=== PATIENT | male | born 1960 | race Caucasian/White ===

== ENCOUNTER → 2019-08-24 10:11 | Outpatient (CLI) | payer MEDICARE, BC, SELFPAY ==
--- NOTE | 2019-08-24 10:24 | XR_ITS ---
PROCEDURE: XR CHEST 2V CLINICAL HISTORY: CP, SOB Chest pain, shortness of breath, prior smoker COMPARISON: No exams were available for comparison FINDINGS: The cardiomediastinal silhouette and pulmonary vascularity are within normal limits. The lungs are clear without infiltrates, suspicious nodules, or pleural effusions. No acute bony abnormalities. IMPRESSION: No acute findings. Dictated by: Niko Vieyra MD 08/24/2019 10:34 Electronically signed by Niko Vieyra MD in [place] 08/24/2019 10:34
[2019-08-24 11:23] LABS: Basophils % 0.2 % (0.1-2.0); Eosinophils % 0.2 % (0.1-12.0); Hematocrit 42.2 % (42.0-52.0); Hemoglobin 13.8 g/dL (14.1-18.0); Lymphocytes # 1.2 K/mm3 (0.7-4.5); Lymphocytes % 11.9 % (10-50); Mean Corpuscular HGB Conc 32.8 g/dL (31.8-35.4); Mean Corpuscular Hemoglobin 30.4 pg (27.0-31.2); Mean Corpuscular Volume 92.6 fl (80-94); Mean Platelet Volume 6.9 fl (7.4-10.4); Monocytes # 0.7 K/mm3 (0.1-1.0); Monocytes % 6.4 % (1.7-9.3); Neutrophils # 8.5 K/mm3 (1.8-7.8); Neutrophils % 81.3 % (37.0-80.0); Platelet Count 277 K/mm3 (142-424); Red Blood Count 4.55 M/mm3 (4.60-6.20); Red Cell Distribution Width 12.6 % (11.5-17.5); White Blood Count 10.4 K/mm3 (4.8-10.8)
[2019-08-24 13:08] LABS: Alanine Aminotransferase 23 U/L (12-78); Albumin Level 4.1 gm/dL (3.4-5.0); Albumin/Globulin Ratio 1.3 (1.1-1.8); Alkaline Phosphatase 57 U/L (46-116); Anion Gap 14.2 mEq/L (5-15); Aspartate Amino Transferase 20 U/L (15-37); Bilirubin,Total 0.5 mg/dL (0.2-1.0); Blood Urea Nitrogen 20 mg/dL (7-18); Calcium 9.6 mg/dL (8.5-10.1); Carbon Dioxide 25 mmol/L (21.0-32.0); Chloride 106 mmol/L (98-107); Estimated Glomerular Filt Rate 138 ml/min (>60); GFR (African American) 167 ML/MIN (>60); Globulin 3.2 gm/dl (1.3-3.2); Glucose 84 mg/dL (74-106); Potassium 4.2 mmoL/L (3.5-5.1); Sodium 141 mmol/L (136-145); Total Protein,Serum 7.3 gm/dL (6.4-8.2); Troponin I < 0.02 ng/ml (0.00-0.06)
[2019-08-25 17:16] LABS: Myoglobin 30 ng/mL (28-72)
== END ==
PROVIDERS: PCP Nurse Practitioner Family; Visit Provider Nurse Practitioner Family
DX: R07.9 Chest pain, unspecified (principal); R06.02 Shortness of breath
CPT/HCPCS: 36415; 71046; 80053; 83874; 84484; 85025

== ENCOUNTER → 2019-09-19 14:47 | Outpatient (CLI) | payer MEDICARE, BC, SELFPAY | PROVIDERS: PCP Nurse Practitioner Family; Visit Provider Nurse Practitioner Family | DX: R00.2 Palpitations (principal) | CPT/HCPCS: 93225; 93226 ==

== ENCOUNTER 2021-12-27 14:01 | Emergency (ER) | payer MEDICARE, BC, SELFPAY ==
[2021-12-27 14:02] VITALS: BP 122/76; PULSE 95; RESP 18; TEMP 36.9; O2SAT 97; BMI 22.9
[2021-12-27 14:24] VITALS: BP 122/76; PULSE 90; RESP 16; TEMP 36.9; O2SAT 97
--- NOTE | 2021-12-27 14:28 | HMH.EDUTC ---
[facility] [place] Clinical Impression: Bee sting reaction Qualifiers: Encounter type: initial encounter Injury intent: undetermined intent Qualified Code(s): T63.444A - Toxic effect of venom of bees, undetermined, initial encounter Disposition: Home, Self-Care Condition on Discharge: Good Instructions: Insect Bites and Stings, DI for Insect Bites and Stings, Diphenhydramine Additional Instructions: Over the counter Benadryl may help with itching and reaction to bee stings Ice to the area may help with swelling Follow up with Family Doctor if no improvement or any worsening of symptoms Return if needed Straight to ER if any life threatening symptoms Start oral steriods tomorrow Prescriptions: predniSONE [Deltasone 10mg tablet] 10 mg PO BID #10 tab Transmission Status: Received by [id number] Referrals: Alma Delia Singh APRN [Primary Care Provider] - As needed Time of Disposition: 14:46 Medical Decision Making - Tray Inquiry Pt receiving controlled substance: No Tray was queried for this patient: No Vital Signs: 12/27/21 14:02 12/27/21 14:24 12/27/21 14:55 Temperature 98.4 F 98.4 F 98.3 F Temperature Source Oral Oral Oral Pulse Rate 87 Pulse Rate [Left Radial] 95 H 90 Respiratory Rate 18 16 16 Blood Pressure 122/76 Blood Pressure [Left Arm] 122/76 122/76 Blood Pressure Mean [Left Arm] 91 91 Blood Pressure Source Automatic Cuff Blood Pressure Source [Left Arm] Automatic Cuff Automatic Cuff Blood Pressure Position Sitting Blood Pressure Position [Left Arm] Sitting Sitting 02 Sat by Pulse Oximetry 97 97 Oxygen Delivery Method Room Air Room Air Room Air Orders (Tests/Meds): ED MEDICATIONS Discontinued Medications Generic Name Dose Route Start Last Admin Trade Name Freq PRN Reason Stop Dose Admin Methylprednisolone Sodium Succinate 125 mg 12/27/21 14:36 12/27/21 14:46 Methylprednisolone Sod Succ 125mg Vial IM 12/27/21 14:37 125 mg ONCE ONE Administration [facility] [place] - General Stated complaint: AO [id number] stung by bee,swollen hand Time Seen by Provider: 12/27/21 14:28 Mode of Arrival: Ambulatory Source of Information: Patient Limitations: No Limitations Description of Symptoms (Recalled from Triage Doc. by RN): States that he was stung by a wasp on his right hand yesterday. C/O redness and swelling today HEENT Symptoms (Recalled from RN notes): No Resp Symptoms (Recalled from RN notes): No Skin Symptoms (Recalled from RN notes): No MS Symptoms (Recalled from RN notes): No Functional Status (Recalled from RN notes): na - History of Present Illness Provider Complaint: Patient states that he was moving some mulch yesterday when he was stung on the inside of the right ring finger and he had some swelling and redness initially on the ring finger that swelling and redness has continued to spread into his hand and wrist area and he was worried that he is having a reaction so he came in to get it checked out - Related Data Previous Rx's Medication Instructions Recorded predniSONE [Deltasone 10mg tablet] 10 mg PO BID #10 tab 12/27/21 Allergies Allergy/AdvReac Type Severity Reaction Status Date / Time Sulfa (Sulfonamide Allergy Rash Verified 12/27/21 14:33 Antibiotics) - Worker's Comp Is this a Worker's Comp case?: No [facility] History - Hepatitis A Screen Drug use history?: No High risk sexual behaviors?: No History of sexually transmitted infection?: No Currently employed?: No Childcare worker?: No Do you have indoor plumbing?: Yes Do you have electricity?: Yes Attestation statement:: This patient has been screened for Hepatitis A risk factors. I have reviewed the patient's past medical history: Yes ROS Obtained: Yes All systems reviewed & no additional complaints, Yes Systems reviewed as appropriate & no additional complaints - Eyes Eyes: Reports system reviewed and no additional complaints, except as docu - ENT Ears, Nose, Mo
[2021-12-27 14:55] VITALS: BP 122/76; PULSE 87; RESP 16; TEMP 36.8; O2SAT 98
== END 2021-12-27 15:05 | disposition home or self-care (01) ==
PROVIDERS: Emergency Provider Nurse Practitioner; PCP Nurse Practitioner Family
DX: T63.461A Toxic effect of venom of wasps, accidental (unintentional), initial encounter (principal); Z79.52 Long term (current) use of systemic steroids; Z79.899 Other long term (current) drug therapy; Z88.2 Allergy status to sulfonamides
CPT/HCPCS: G0463; 96372; 99213

== ENCOUNTER 2022-01-03 13:23 | Emergency (ER) | payer MEDICARE, BC, SELFPAY ==
[2022-01-03 14:00] VITALS: BP 128/63; PULSE 74; RESP 17; TEMP 37.3; O2SAT 96; BMI 22.8
[2022-01-03 14:30] LABS: UTC Influenza A Antigen Negative (Negative)
[2022-01-03 14:31] LABS: UTC Influenza B Antigen Negative (Negative)
--- NOTE | 2022-01-03 14:31 | HMH.EDUTC ---
[facility] – [place] Disposition Clinical Impression: URI (upper respiratory infection) Qualifiers: URI type: unspecified URI Qualified Code(s): J06.9 - Acute upper respiratory infection, unspecified Disposition: Home, Self-Care Condition on Discharge: Good Instructions: DI for Sinusitis, Sore Throat, DI for Cough -- Adult Additional Instructions: *Monitor Temp, Over the counter Motrin or Tylenol as directed/as needed Tylenol every 4 hours and Motrin every 6 hours (as long as your family doctor has told you that you can take it) for fever or pain. and straight to ER if unable to lower temp less than 101.0 after medication given *Warm salt water gargles may help to soothe the throat *Throat Lozenges *Warm fluids like tea with honey may help to soothe the throat *Sleep elevated *Humidifier/Vaporizer *Flonase 2 sprays in each nostril daily but be aware that it may take 2-3 days before you notice improvement Follow up IMMEDIATELY for new or worsening symptoms or no Noticeable improvement over the next 48-72 hours. 911 for difficulty breathing or swallowing You were tested for today for COVID19 your test result should be back in the next 24-48 hours, you may check your results on the [facility] My Health portal if you have trouble logging on you may call for assistance Make sure to take your Vitamins Vit. C Vit D and Zinc if you can take them Prescriptions: Benzonatate [Benzonatate 100mg cap] 100 mg PO Q8HP PRN #30 cap PRN Reason: Cough Transmission Status: Pending to [facility] Fluticasone Propionate [Flonase 50mcg nasal spray 16gm] 1 spr NS DAILY #1 each Transmission Status: Pending to [facility] Azithromycin [Z-Alexandre 250mg Tab] 250 mg PO DIRECTED #6 tab Transmission Status: Pending to [facility] Referrals: Alma Delia Singh APRN [Primary Care Provider] - As needed Time of Disposition: 14:47 Medical Decision Making - Tray Inquiry Pt receiving controlled substance: No Tray was queried for this patient: No Vital Signs: 01/03/22 14:00 Temperature 99.2 F Temperature Source Oral Pulse Rate [Right Brachial] 74 Respiratory Rate 17 Blood Pressure [Right Arm] 128/63 Blood Pressure Mean [Right Arm] 84 Blood Pressure Source [Right Arm] Automatic Cuff Blood Pressure Position [Right Arm] Sitting 02 Sat by Pulse Oximetry 96 Oxygen Delivery Method Room Air - Lab Data Lab results reviewed: Yes: I reviewed the patient's lab results. Lab Results 01/03/22 14:30: Influenza Type A Ag Negative, Influenza Type B Ag Negative Orders (Tests/Meds): ORDERS Category Date Time Status Covid-19 Nasal PCR ([facility]) Routine Lab 01/03/22 14:30 Ordered Medical Decision Narrative: Patient states that he has taken azithromycin in the past without complications or reactions [facility] [place] HPI - General Stated complaint: covid test, cough Time Seen by Provider: 01/03/22 14:32 Mode of Arrival: Ambulatory Source of Information: Patient Limitations: No Limitations Description of Symptoms (Recalled from Triage Doc. by RN): PATIENT C/O HEADACHE, FEVER, SORE THROAT AND COUGH. REQUESTING COVID TEST HEENT Symptoms (Recalled from RN notes): Yes Resp Symptoms (Recalled from RN notes): Yes Skin Symptoms (Recalled from RN notes): No MS Symptoms (Recalled from RN notes): No Functional Status (Recalled from RN notes): WNL - History of Present Illness Provider Complaint: Patient states that about a week ago he started with sinus congestion and pressure and then he started having sore throat and cough States that he has continued to feel worse with pressure behind his eyes and cough since States that he was worried that he may have sinus infection or COVID so he came in to get checked and tested - Related Data Home Medications Medication Instructions Recorded Confirmed Albuterol Sulfate [Albuterol 8.5 gm IH Q6HP PRN 01/03/22 01/03/22 Sulfate Hfa] Atorvastatin Calcium [Lipitor 10mg 10 mg PO HS 01/03/22
[2022-01-03 14:45] VITALS: BP 128/63; PULSE 74; RESP 17; TEMP 37.3; O2SAT 96
== END 2022-01-03 14:50 | disposition home or self-care (01) ==
PROVIDERS: Emergency Provider Nurse Practitioner; PCP Nurse Practitioner Family
DX: J06.9 Acute upper respiratory infection, unspecified (principal); J02.9 Acute pharyngitis, unspecified
CPT/HCPCS: G0463; 87804; 99212; C9803; U0003; U0005

== ENCOUNTER → 2022-03-23 07:58 | Outpatient (CLI) | payer MEDICARE, BC, SELFPAY ==
--- NOTE | 2022-03-23 08:05 | CT_ITS ---
FINAL REPORT CLINICAL HISTORY: UPPER ABD PAIN,H/O PEPTIC ULCER,BLOATING,EPIGASTRIC PAIN FINDINGS: CT OF THE ABDOMEN AND PELVIS WITH CONTRAST Axial CT images of the abdomen and pelvis were obtained after the administration of oral and iv contrast. Coronal reformatted images were also obtained and reviewed.This study was performed with techniques to keep radiation doses as low as reasonably achievable (ALARA). Individualized dose reduction techniques using automated exposure control or adjustment of mA and/or kV according to the patient's size were employed. Abdomen: The lungs demonstrate mild bibasilar scarring. The heart is normal in size. The liver has an unremarkable appearance, without evidence of mass or biliary ductal dilatation. The patient is status post cholecystectomy. The spleen is unremarkable. No adrenal mass is present. The pancreas has an unremarkable appearance. The kidneys are normal, without evidence of mass or hydronephrosis. The aorta is normal in caliber. There is no free fluid or adenopathy. No mass or abnormal fluid collection is seen. There are postoperative changes in the stomach. Pelvis: The appendix normal The urinary bladder is unremarkable. No inflammatory process is seen. There is no evidence of mass or adenopathy. There is no evidence of bowel obstruction. There is a moderate to large amount of retained stool in the colon. IMPRESSION: No evidence of acute intra-abdominal process. Constipation. Reviewed, Interpreted and Dictated by Abe Carolina III, MD Transcribed by Keyona Humphries Authenticated and [facility]
== END ==
PROVIDERS: PCP Nurse Practitioner Family; Visit Provider Nurse Practitioner Family
DX: R10.11 Right upper quadrant pain (principal); R10.13 Epigastric pain; R14.0 Abdominal distension (gaseous); Z87.11 Personal history of peptic ulcer disease
CPT/HCPCS: 74177; Q9967

== ENCOUNTER 2022-06-29 16:20 | Emergency (ER) | payer MEDICARE, BC, SELFPAY ==
[2022-06-29 16:50] VITALS: BP 129/75; PULSE 72; RESP 23; TEMP 36.9; O2SAT 97; BMI 22.9
[2022-06-29 17:00] VITALS: BP 129/75; PULSE 72; RESP 23; TEMP 36.9; O2SAT 97; BMI 22.8
--- NOTE | 2022-06-29 17:04 | XR_ITS ---
PROCEDURE INFORMATION: Exam: XR Chest Exam date and time: 06/29/2022 5:03 PM Age: 61 years old Clinical indication: Cough TECHNIQUE: Imaging protocol: Radiologic exam of the chest. Views: 2 views. COMPARISON: CR XR CHEST 2V 08/24/2019 10:25 AM FINDINGS: Lungs: No lobar consolidation, pleural effusion or pulmonary edema. Pleural spaces: See Lungs finding. Heart/Mediastinum: Unremarkable. No cardiomegaly. Bones/joints: Unremarkable. IMPRESSION: No lobar consolidation, pleural effusion or pulmonary edema. Plain films are relatively insensitive for detecting any possible ground glass opacities.
--- NOTE | 2022-06-29 17:20 | EXP.UTC ---
Discharge Plan Prescriptions Prescriptions: No Action cyclobenzaprine 10 MG tablet 10 mg PO TIDP PRN (Reason: PAIN) atorvastatin 10 MG tablet 10 mg PO HS meloxicam 15 MG tablet 15 mg PO DAILY esomeprazole magnesium 40 MG capsule,delayed release(DR/EC) 40 mg PO DAILY gabapentin 100 MG capsule 100 mg PO BID albuterol sulfate 8.5 GM HFA aerosol inhaler 8.5 gm IH Q6HP PRN (Reason: Shortness Of Breath) azithromycin 250 MG tablet 250 mg PO DIRECTED Qty: 6 0RF Rx Instructions: Take two (2) tablets on day #1, then one (1) tablet day #2 thru #5 benzonatate 100 MG capsule 100 mg PO Q8HP PRN (Reason: Cough) Qty: 30 0RF fluticasone propionate 120 SPR/BOT bottle 1 spr NS DAILY Qty: 1 0RF Rx Instructions: one spray in each nostril daily Referrals Follow up/Referrals: Alma Delia Singh APRN [Primary Care Provider] - See instructions Activity Restrictions/Add. Instructions Additional Instructions/Restrictions: Make sure if you are working with chemicals you are working in a well ventilated area with appropriate face coverings Follow up with your Family Doctor if symptoms return or worsen Make sure to air out room before you enter or stay in for periods of time Return if needed Straight to ER if any life threatening symptoms Clinical Impressions Clinical Impression: Chemical exposure Instructions Patient Instructions: DI for Inhalation Injury Discharge ED Provider: Lori Pop [facility] [place] HPI General Stated complaint: [id number]/12@1100@home breathing of flumes Mode of Arrival: Ambulatory Source of Information: Patient Limitations: No Limitations Time Seen by Provider: 06/29/22 17:20 Description of Symptoms (Recalled from Triage Doc. by RN): PATIENT REPORTS THAT HE WAS CLEANING A JAC SAW BLADE THAT HAD LIQUID RUST REMOVER ON IT AND BELIEVES HE INHALED SOME OF THE RUST REMOVER TODAY AT APPROX 1200. HE REPORTS AN EPISODE OF COUGHING, HEADACHE, AND FEELING JITTERY FOR ABOUT 2 HOURS AFTER THIS INCIDENT. HE STATES HE FEELS FINE NOW, BUT HIS WANTED HIM TO GET CHECKED OUT HEENT Symptoms (Recalled from RN notes): No Resp Symptoms (Recalled from RN notes): Yes Skin Symptoms (Recalled from RN notes): No MS Symptoms (Recalled from RN notes): No Functional Status (Recalled from RN notes): WNL History of Present Illness Provider Complaint: Patient states that he put some WD40 rust remover on a saw blade he had at home on the wall and he started scrubbing it States that some of the dust got into the air and the fumes was in the room and made him start coughing, feeling a little jittery and headache for about an hour or so but has since now gone States that was worried due to him having asthma about him breathing in the dust particles and the fumes so she wanted him to come in and get a chest xray and make sure that it looks ok States that he feels fine now Related Data Home Medications Medication Instructions Recorded Confirmed albuterol sulfate 90 mcg/actuation 8.5 gm IH Q6HP PRN Shortness Of 01/03/22 01/03/22 aerosol inhaler Breath atorvastatin 10 mg tablet 10 mg PO HS Cholesterol 01/03/22 01/03/22 cyclobenzaprine 10 mg tablet 10 mg PO TIDP PRN PAIN 01/03/22 01/03/22 esomeprazole magnesium 40 mg 40 mg PO DAILY GERD 01/03/22 01/03/22 capsule,delayed release gabapentin 100 mg capsule 100 mg PO BID Pain 01/03/22 01/03/22 meloxicam 15 mg tablet 15 mg PO DAILY Pain 01/03/22 01/03/22 Previous Rx's Medication Instructions Recorded azithromycin 250 mg tablet 250 mg PO DIRECTED #6 tabs 01/03/22 benzonatate 100 mg capsule 100 mg PO Q8HP PRN Cough #30 caps 01/03/22 fluticasone propionate 50 1 spr NS DAILY #1 ea 01/03/22 mcg/actuation nasal spray,suspension Allergies Allergy/AdvReac Type Severity Reaction Status Date / Time Sulfa (Sulfonamide Allergy Rash Verified 12/27/21 14:33 Antibiotics) Worker's Comp Is this a Worker's Comp case?: No PFS
[2022-06-29 17:35] VITALS: BP 129/75; PULSE 72; RESP 23; TEMP 36.9; O2SAT 97
== END 2022-06-29 17:38 | disposition home or self-care (01) ==
LOC: UTC 17:04
PROVIDERS: Emergency Provider Nurse Practitioner; PCP Nurse Practitioner Family
DX: T75.89XA Other specified effects of external causes, initial encounter (principal); R05.9 Cough, unspecified; R51.9 Headache, unspecified
CPT/HCPCS: 71046; 99212; G0463

== ENCOUNTER → 2022-09-21 12:03 | Outpatient (CLI) | payer MEDICARE, BC, SELFPAY ==
--- NOTE | 2022-09-21 12:11 | XR_ITS ---
FINAL REPORT CLINICAL HISTORY: MID STERNAL CP COMPARISON: 06/29/2022 FINDINGS: 2 views of the chest were obtained . The heart is normal in size. The mediastinum is within normal limits. The lungs are clear. There is no pneumothorax. Osseous structures are unremarkable. IMPRESSION: No acute cardiopulmonary process. Reviewed, Interpreted and Dictated by Abe Carolina III, MD Transcribed by Marychuy Malone Authenticated and [facility]
[2022-09-21 13:26] LABS: Basophils # 0.1 K/mm3 (0-0.2); Basophils % 0.5 % (0.1-2.0); Eosinophils # 0.1 K/mm3 (0.0-0.4); Hematocrit 44.7 % (42.0-52.0); Hemoglobin 14.5 g/dL (14.1-18.0); Lymphocytes # 1.7 K/mm3 (0.7-4.5); Lymphocytes % 18.6 % (10-50); Mean Corpuscular HGB Conc 32.5 g/dL (31.8-35.4); Mean Corpuscular Hemoglobin 29.5 pg (27.0-31.2); Mean Corpuscular Volume 90.6 fl (80-94); Mean Platelet Volume 7.5 fl (7.4-10.4); Monocytes # 0.4 K/mm3 (0.1-1.0); Monocytes % 4.7 % (1.7-9.3); Neutrophils # 6.9 K/mm3 (1.8-7.8); Neutrophils % 75.2 % (37.0-80.0); Platelet Count 355 K/mm3 (142-424); Red Blood Count 4.94 M/mm3 (4.60-6.20); Red Cell Distribution Width 13.2 % (11.5-17.5); White Blood Count 9.2 K/mm3 (4.8-10.8)
[2022-09-21 13:53] LABS: Troponin I < 0.01 ng/ml (0.00-0.034)
== END ==
PROVIDERS: PCP Nurse Practitioner Family; Visit Provider Nurse Practitioner Family
DX: R07.89 Other chest pain (principal); R06.02 Shortness of breath
CPT/HCPCS: 36415; 71046; 84484; 85025

== ENCOUNTER → 2022-12-10 12:58 | Outpatient (CLI) | payer MEDICARE, BC, SELFPAY ==
--- NOTE | 2022-12-10 13:07 | XR_ITS ---
FINAL REPORT CLINICAL HISTORY: thumb pain that radiates into wrist FINDINGS: Left hand Three views were obtained. There is no acute fracture or dislocation. There are mild and moderate degenerative changes. No soft tissue abnormality is identified. IMPRESSION: Degenerative changes without acute bony abnormality. Reviewed, Interpreted and Dictated by Abe Carolina III, MD Transcribed by Suri Bhandari Authenticated and [facility]
--- NOTE | 2022-12-10 13:07 | XR_ITS ---
FINAL REPORT CLINICAL HISTORY: thumb pain that radiates into wrist FINDINGS: Right hand Three views were obtained. There is no acute fracture or dislocation. There are mild and moderate degenerative changes. There is a small loose body at the 1st carpometacarpal. IMPRESSION: Degenerative changes and small loose body as above. Reviewed, Interpreted and Dictated by Abe Carolina III, MD Transcribed by Suri Bhandari Authenticated and [facility]
== END ==
PROVIDERS: PCP Nurse Practitioner Family; Visit Provider Orthopaedic Surgery
DX: M79.644 Pain in right finger(s); M79.645 Pain in left finger(s); R20.0 Anesthesia of skin; R20.2 Paresthesia of skin
CPT/HCPCS: 73130

== ENCOUNTER → 2023-08-04 14:49 | Outpatient (CLI) | payer MEDICARE, BC, SELFPAY ==
[2023-08-04 14:32] LABS: Basophils % 0.2 % (0.1-2.0); Eosinophils # 0.1 K/mm3 (0.0-0.4); Eosinophils % 0.8 % (0.1-12.0); Hematocrit 42.3 % (42.0-52.0); Hemoglobin 14.6 g/dL (14.1-18.0); Lymphocytes # 1.6 K/mm3 (0.7-4.5); Lymphocytes % 22.1 % (10-50); Mean Corpuscular HGB Conc 34.6 g/dL (31.8-35.4); Mean Corpuscular Hemoglobin 30.9 pg (27.0-31.2); Mean Corpuscular Volume 89.1 fl (80-94); Mean Platelet Volume 8.3 fl (7.4-10.4); Monocytes # 0.5 K/mm3 (0.1-1.0); Monocytes % 6.1 % (1.7-9.3); Neutrophils # 5.2 K/mm3 (1.8-7.8); Neutrophils % 70.8 % (37.0-80.0); Platelet Count 297 K/mm3 (142-424); Red Blood Count 4.75 M/mm3 (4.60-6.20); Red Cell Distribution Width 13.3 % (11.5-17.5); White Blood Count 7.3 K/mm3 (4.8-10.8)
[2023-08-04 14:57] LABS: Erythrocyte Sedimentation Rate 27 mm/hr (0-20)
[2023-08-04 15:28] LABS: C-Reactive Protein 0.5 mg/L (0-4)
== END ==
PROVIDERS: PCP Nurse Practitioner Family; Visit Provider Nurse Practitioner Family
DX: R51.9 Headache, unspecified (principal)
CPT/HCPCS: 85025; 85651; 86140

== ENCOUNTER → 2023-08-16 17:00 | Outpatient (CLI) | payer MEDICARE, BC, SELFPAY | PROVIDERS: PCP Nurse Practitioner Family; Visit Provider Nurse Practitioner Family | DX: R10.9 Unspecified abdominal pain (principal) | CPT/HCPCS: 87086 ==

== ENCOUNTER → 2023-09-06 14:20 | Outpatient (CLI) | payer MEDICARE, BC, SELFPAY ==
--- NOTE | 2023-09-06 14:21 | CT_ITS ---
FINAL REPORT TECHNIQUE: Thin section axial CT images with coronal and sagittal reformats were performed through the neck. This study was performed with techniques to keep radiation doses as low as reasonably achievable (ALARA). Individualized dose reduction techniques using automated exposure control or adjustment of mA and/or kV according to the patient's size were employed. CLINICAL HISTORY: looking for a possible blockage COMPARISON: None FINDINGS: No adenopathy or mass lesion is present . Salivary glands are normal. Larynx is unremarkable. Thyroid gland is unremarkable. There is moderate mucosal thickening in the left maxillary sinus and mild mucosal thickening in the right maxillary sinus. There is also wall thickening in the maxillary sinuses bilaterally consistent with chronic inflammation. There are also areas of soft tissue thickening in the sphenoid sinuses. Bilateral carotid artery calcifications are noted in the cervical soft tissues, more prominent on the right side than the left. There is moderate degenerative change in the cervical spine with fusion present at the C5-6 level. There are right lung nodules present measuring up to 9 mm in size. Would recommend a follow-up chest CT to evaluate. IMPRESSION: Several right lung nodules measuring up to 9 mm in size. Would recommend chest CT in 3 months to further characterize. Changes of sinusitis in the maxillary and sphenoid sinuses as described. Bilateral carotid artery calcifications more prominent on the right than on the left. Reviewed, Interpreted and Dictated by Abe Carolina III, MD Transcribed by Shayla Coleman Authenticated and [facility]
== END ==
PROVIDERS: PCP Nurse Practitioner Family; Visit Provider Nurse Practitioner
DX: H65.21 Chronic serous otitis media, right ear (principal); Z87.891 Personal history of nicotine dependence
CPT/HCPCS: 70490

== ENCOUNTER → 2023-09-23 11:21 | Outpatient (POV) | payer MEDICARE, BC, SELFPAY | PROVIDERS: Visit Provider Specialist/Technologist | DX: Z00.00 Encounter for general adult medical examination without abnormal findings (principal) ==

== ENCOUNTER → 2023-10-07 06:20 | Outpatient (CLI) | payer MEDICARE, BC, SELFPAY ==
--- NOTE | 2023-10-07 | CA_ITS ---
APPROVED REPORT Exam: Exercise Treadmill Technologist: Tamara Nicolas, Ht: 5 ft 10 in Wt: 177 lbs BSA: 1.98 m2 HR: 70 bpm BP: 138/71 mmHg Rhythm: NSR, PVC Medical History Medications: Gabapentin,,,,, Pantoprazole,,,,, Flonase,,,,, Albuterol,,,,, Levocetirizine,,,,, AZelastine,,,,, Trelegy Ellipta,,,,, Vitamin B-12,,,,, Feosol,,,,, Allergies: SULFA Cardiac Risk Factors: FHX of CAD Stress Test Details Test: Souleymane HR Resting HR: 79 bpm Max Heart Rate (APMHR): 157 bpm Max HR Achieved: 168 bpm Target HR (85% APMHR): 133 bpm % of APMHR: 107 Recovery HR: 100 bpm HR response to stress: Normal HR response to stress BP Resting BP: 129.0/76 mmHg Max BP: 195/80 mmHg Recovery BP: 153.0/69.0 mmHg BP response to stress: Normal blood pressure response to stress. ECG Resting ECG: NSR, PVC Stress EC.[address] depression Arrhythmia: PACs, PVCs, 1 ventricular couplet Recovery ECG: Return to baseline within 3 minutes of recovery Recovery Arrhythmia: PACs, PVCs Clinical Exercise duration: 09:30 min Highest Stage Achieved: Exercise capacity: 10.1 METs Overall Exercise Capacity for Age: Average Stress ECG Conclusion The patient was able to exercise for a total of 9 minutes, 30 seconds. He achieved a total of 10.1 METS. He has average exercise capacity compared to age and sex matched peers. He has normal HR and BP response to exercise. MAX HR: 167 % OF PM: 106% MAX BP: 195/80 METS: 10.1 TEST STOPPED DUE TO: SOA NO CP Occasional PVCs, [address] changes: 0.[address] depression Conclusion: Average exercise capacity. No significant ST changes at peak stress. Myoview images are reported separately. Test Summary REST . . . . . . . Sitting REST . . . . . . . Standing REST . . . . . . . Standing REST 04:34 0.0 0.0 79 . 129/ 76 . . Stage 1 01:00 10.0 1.7 93 . . . . Stage 1 02:00 10.0 1.7 103 . . . . Stage 1 03:00 10.0 1.7 100 . 162/ 78 . . Stage 2 01:00 12.0 2.5 117 . . . . Stage 2 02:00 12.0 2.5 121 . . . . Stage 2 03:00 12.0 2.5 128 . 184/ 72 . . Stage 3 01:00 14.0 3.4 144 . . . . Stage 3 02:00 14.0 3.4 152 . . . . Stage 3 . . . . . . . Cardiolite injected Stage 3 03:00 14.0 3.4 158 . . . . Stage 4 00:30 16.0 4.2 167 . . . Stop exercise at 09:30 RECOVERY 01:00 0.0 0.0 147 . . . . RECOVERY 02:00 0.0 0.0 122 . . . . RECOVERY 03:00 0.0 0.0 108 . 195/ 80 . . RECOVERY 04:00 0.0 0.0 103 . 177/ 72 . . RECOVERY 05:00 0.0 0.0 100 . 153/ 69 . . RECOVERY 05:19 0.0 0.0 99 . 153/ 69 . . Electronically signed by : Paula Quezada MD 10/10/2023 23:07:24
--- NOTE | 2023-10-07 06:21 | CA_ITS ---
FINAL REPORT TECHNIQUE: Real-time imaging was performed of the extracranial carotid arteries in transverse and longitudinal planes, with color duplex evaluation of blood flow velocity. Spectral analysis was performed. The cervical vertebral arteries were also examined. CLINICAL HISTORY: CAD, DIZZINESS,PLAQUE SEEN IN CARTOIDS ON CT SCAN COMPARISON: None FINDINGS: NASCET technique is utilized for stenosis evaluation. Right carotid system (centimeters/second): CCA: 83 ICA: 80 ECA: 129 Vertebral artery: Antegrade ICA/CCA ratio: 0.96 Mild plaque is identified at the bifurcation. Left carotid system (centimeters/second): CCA: 94 ICA: 73 ECA: 108 Vertebral artery: Antegrade ICA/CCA ratio: 0.9 Mild plaque is identified at the bifurcation. IMPRESSION: Less than 50% right ICA stenosis. Less than 50% left ICA stenosis. Antegrade flow bilateral vertebral arteries. Reviewed, Interpreted and Dictated by Gilbert Perea MD Transcribed by Shayla Coleman Authenticated and [facility]
--- NOTE | 2023-10-07 06:21 | CA_ITS ---
APPROVED REPORT EXAM: Comprehensive 2D, Doppler, and color-flow Echocardiogram Histology Manager: Cheryl Cameron CRT Ht: 5 ft 10 in Wt: 177lbs BSA: 1.98 BP: 129/70 mmHg Indications: Abnormal ECG, Chest Pain, Shortness of Breath, Hyperlipidemia, Hypertension/HDD 2D Dimensions Left Atrium 3.34 cm M: 3.0 - 4.0 LVEF (Conn's) 55.40 % M: 52 - 72 LVOT 1.46 cm (M/F) 1.5-2.5 LV Volume 113.50 mL M: 62 - 150 LV Volume Index 57.3 mL/m2 M: 34 - 74 LA Volume 35.50 mL LA Volume Index 17.93 mL/m2 (M/F) 16-34 EF AP4 51.70 % EF AP2 59.7 % EF BP 55.4 % GL Strain -17.0 % M-Mode Dimensions RVDd 3.72 cm (0.9-2.6) LVDd 3.93 cm (3.5-5.7) Ao Diam 3.35 cm (2.0-3.7) LVDs 2.57 cm (3.5-5.7) IVSd 1.54 cm (0.6-1.1) PWd 0.79 cm (0.6-1.1) EF (Teich) 64.40% FS 34.60% EDV (Teich) 67.10 mL TAPSE 2.48 (<1.7) ESV (Teich) 23.90 mL LV Diastology E Decel Time 240 (160-240 msec) E/A Ratio 1.0 MED E' 6.8 (>= 7 cm/sec) MED A' 14.40 cm/s E'/MED E' Ratio 11.91 (<= 14) LAT E' 9.8 (>= 10 cm/sec) LAT A' 10.80 cm/s E/LAT E' Ratio 8.27 (<= 14) Aortic Valve LVOT Max 155.0 (70-110 cm/s) VERENICE Index 0.55 cm2/m2 LVOT VTI 35.05 cm AoV Peak Maroln. 228.0 (50-130 cm/s) AO Peak GR. 18.80 mmHg AO Mean GR. 12.50 (<5 mmHg) AO VTI 53.7 (18-25 cm) VERENICE (VTI) 1.09 (2.5-4.5 cm2) Mitral Valve MV E Max Marlon. 81.0 (40-130 cm/s) MV A Velocity 82.0 (40-130 cm/s) E/A Ratio 0.99 MV Decel. Time 240 (160-240 ms) Tricuspid Valve TR P. Velocity 593.00 cm/s RAP Estimate 10.00 mmHg RVSP 150.90 mmHg Left Ventricle The left ventricle is normal size. The left ventricular systolic function is normal. The left ventricular ejection fraction is within the normal range. There is normal left ventricular wall thickness. There is normal LV segmental wall motion. The left ventricular diastolic function is normal. LVEF is 55%. Right Ventricle The right ventricle is mildly dilated. The right ventricular systolic function is normal. Atria The left atrium size is normal. The right atrium size is normal. There is no Doppler evidence of interatrial shunt. Aortic Valve The aortic valve is mildly thickened. Aortic sclerosis, but no evidence of aortic stenosis. Peak velocity 2.3 m/s. Trace aortic regurgitation is present. Mitral Valve The mitral valve leaflets are mildly thickened. No evidence of mitral valve stenosis. Trace mitral regurgitation. Tricuspid Valve The tricuspid valve leaflets are thin and pliable. Trace tricuspid regurgitation. RVSP is 30-35 mmHg. Pulmonic Valve The pulmonary valve is normal in structure. Trace pulmonic regurgitation. Great Vessels The aortic root is normal in size. The ascending aorta is normal in size. IVC is normal in size and collapses >50% with inspiration. Pericardium There is no pericardial effusion. Other Information Study Quality: Fair Conclusion Normal biventricular systolic function. Mild RV dilation. Mild MR. RVSP is 30-35 mmHg. Electronically signed by : Paula Quezada MD 10/11/2023 21:17:20
--- NOTE | 2023-10-07 06:25 | NM_ITS ---
APPROVED REPORT Exam: Nuclear Stress Test Indication: FORMER SMOKER, FM HX, DIZZINESS, ABN EKG Patient Location: Outpatient Stress Tech: Tamara Chaparro PA Tech:MELONY Sherwood RT (R)(N)(M) Ht: 5 ft 10 in Wt: 170 lbs HR: 70 bpm BP: 138/71 mmHg BSA: 1.95 m2 TID: 1.09 BMI: 24.3 History: FORMER SMOKER, FM HX, DIZZINESS, ABN EK PATIENT COULD NOT LAY ON STOMACH FOR PRONE IMAGES DUE TO INJURRED SHOULDER Procedure: Patient exercised on Souleymane protocol 9:30 minutes and sec, resting heart rate 70 bpm, resting blood pressure 138/71 mmHg, with exercise maximum heart rate achived was 169 bpm which is 107 % of the maximum predicted heart rate and blood pressure was 195/80 mmHg. Test was stopped due to FATIGUE. Patient denied any complaint of chest pain. Patient has Average exercise capacity, achieved 10.1 METs of workload on treadmill, the blood pressure response to exercise was Normal. Cardiac Stress and Resting SPECT Images: Cardiac Stress and Resting SPECT images were obtained using technetium 99m Myoview 31.2 mCi stress and 10.58 mCi at rest. The patient could not lie on his abdomen. Therefore, prone stress imaging could not be performed. This may affect the diagnostic interpretation of the study findings. Resting and stress imaging and supine positions demonstrate a large sized, moderate, reversible perfusion defect in the basal to mid inferior and inferoseptal LV hall. Gated imaging demonstrates normal global LV systolic function. There is mild hypokinesis of the basal inferior LV wall. LVEF is calculated at 54%. Conclusion: Large sized, moderate, reversible perfusion defect in the basal to mid inferior and inferoseptal LV hall. Findings are suggestive of reversible ischemia. Gated imaging demonstrates normal global LV systolic function. There is mild hypokinesis of the basal inferior LV wall. LVEF is calculated at 54%. Electronically signed by : Paula Quezada MD 10/10/2023 23:11:33
== END ==
PROVIDERS: PCP Nurse Practitioner Family; Visit Provider Physician Assistant
DX: I77.9 Disorder of arteries and arterioles, unspecified (principal); R42 Dizziness and giddiness; R07.9 Chest pain, unspecified; R06.09 Other forms of dyspnea; R94.31 Abnormal electrocardiogram [ECG] [EKG]
CPT/HCPCS: 78452; 93017; 93018; 93306; 93880; A9502

== ENCOUNTER 2023-11-25 07:22 | Outpatient (CLI) | payer MEDICARE, BC, SELFPAY ==
--- NOTE | 2023-11-25 07:23 | CT_ITS ---
FINAL REPORT TECHNIQUE: Axial imaging of the chest was obtained without contrast. Reformatted images were also obtained and reviewed.This study was performed with techniques to keep radiation doses as low as reasonably achievable, (ALARA). Individualized dose reduction technique using automated exposure control or adjustment of mA and/or kV according to the patient's size were employed. CLINICAL HISTORY: Lung nodule FINDINGS: There is no axillary adenopathy. There are multiple small mediastinal lymph nodes. Heart size is normal. There is no pericardial or pleural effusion. There are multiple bilateral pulmonary nodules measuring up to 9 mm which is in the posterior right upper lobe on image 35. Other smaller nodules are seen bilateral. There is mild bronchiectasis at the lung bases posteriorly. Limited imaging of the upper abdomen demonstrates postoperative change of gastric bypass and cholecystectomy. IMPRESSION: 9 mm nodule in the posterior right upper lobe. Recommend 3-month follow-up CT and/or PET/CT. Reviewed, Interpreted and Dictated by Abe Carolina III, MD Transcribed by Marychuy Malone Authenticated and [facility]
== END 2023-11-25 23:59 ==
LOC: RAD 07:22
PROVIDERS: PCP Nurse Practitioner Family; Visit Provider Internal Medicine Pulmonary Disease
DX: R91.8 Other nonspecific abnormal finding of lung field (principal)
CPT/HCPCS: 71250

== ENCOUNTER 2024-02-12 10:53 | Emergency (ER) | payer MEDICARE, BC, SELFPAY ==
[2024-02-12 10:54] VITALS: BP 144/93; PULSE 75; RESP 18; TEMP 36.9; O2SAT 96; BMI 24.3
--- NOTE | 2024-02-12 11:21 | ED_ITS ---
Discharge Plan Disposition Patient Disposition: Home, Self-Care Prescriptions Prescriptions: No Action azelastine 137 mcg (0.1 %) aerosol,spray 2 spray intranasal BID Qty: 30 2RF Rx Instructions: administer into each nostril Men's 50 Plus Multivitamin 400-20-370 mcg tablet 1 tab PO DAILY ferrous sulfate [Feosol] 325 mg (65 mg iron) tablet 325 mg PO DAILY albuterol sulfate 90 mcg/actuation HFA aerosol inhaler 2 puff inhalation Q6HP PRN (Reason: Shortness Of Breath) Qty: 8.5 5RF cyanocobalamin-methylcobalamin 5,000 mcg/mL drops 4 drp sublingual DAILY atorvastatin 10 mg tablet 10 mg PO DAILY Qty: 90 3RF aspirin 81 mg tablet,chewable 81 mg PO QDAY Qty: 100 3RF Trelegy Ellipta 100-62.5-25 mcg blister with device 1 inh inhalation DAILY 30 Days Qty: 60 2RF gabapentin 100 mg capsule 100 mg PO .COMPLEX 30 Days Qty: 90 2RF Rx Instructions: 100 mg orally Take 2 in am, 1 at noon gabapentin 300 mg capsule 300 mg PO HS Qty: 30 2RF pantoprazole 40 mg tablet,delayed release (DR/EC) 40 mg PO BID 90 Days Qty: [address] 0.3-0.05 % drops,suspension 2 drp ophthalmic (eye) BID 7 Days Qty: 5 0RF Rx Instructions: please change the above route to EARs. Use 2 drops in right EAR BID for 7 days levocetirizine 5 mg tablet See Rx Instructions .ROUTE .COMPLEX Qty: 30 2RF Dose Instruction: TAKE ONE TABLET BY MOUTH EVERY DAY Rx Instructions: TAKE ONE TABLET BY MOUTH EVERY DAY fluticasone propionate 50 mcg/actuation spray,suspension 1 spray intranasal DAILY PRN Referrals Follow up/Referrals: Alma Delia Singh APRN [Primary Care Provider] - See instructions Activity Restrictions/Add. Instructions Additional Instructions/Restrictions: Please apply topical antibiotic ointment as described daily and have your sutures removed in 7 to 10 days. Return with any significant spreading redness pus high fevers or other concerns. Clinical Impressions Clinical Impression: Finger laceration Discharge ED Provider: Roxanne Dong General Adult HPI General Chief complaint: Extremity Injury, Upper Stated complaint: AO cut on left middle finger Time Seen by Provider: 02/12/24 10:56 Mode of Arrival: Ambulatory Source of Information: Patient Limitations: No Limitations Description of Symptoms (Recalled from ER Triage Doc. by RN): cut finger with a ground crewman aircraft support knife History of Present Illness HPI narrative: Patient is a 63-year-old male presents today with a laceration to the volar fat pad on the left long finger. States he was working with a ground crewman aircraft support knife about to try to cut into pumpkins the ground crewman aircraft support knife was very clean not contaminated with soil when he accidentally cut his finger. Patient denies any other anticoagulants or antiplatelet or injuries elsewhere. He is not up-to-date on tetanus. Related Data Home Medications Medication Instructions Recorded Confirmed ferrous sulfate 325 mg (65 mg 325 mg PO DAILY 06/25/23 11/19/23 iron) tablet (Feosol) fluticasone propionate 50 1 spray intranasal DAILY PRN 06/25/23 11/19/23 mcg/actuation nasal spray,suspension aqfjpgrgnrlr-msk-vjawx acid-vit 1 tab PO DAILY 06/25/23 11/19/23 K-lycop 400 mcg-20 mcg-370 mcg tablet (Men's 50 Plus Multivitamin) cyanocobalamin-methylcobalamin 4 drp sublingual DAILY 08/16/23 11/19/23 5,000 mcg/mL sublingual drops Previous Rx's Medication Instructions Recorded albuterol sulfate 90 mcg/actuation 2 puff inhalation Q6HP PRN 06/25/23 aerosol inhaler Shortness Of Breath #8.5 grams azelastine 137 mcg (0.1 %) nasal 2 spray intranasal BID #30 mL 09/13/23 spray aerosol aspirin 81 mg chewable tablet 81 mg PO QDAY #100 tabs 09/29/23 atorvastatin 10 mg tablet 10 mg PO DAILY #90 tabs 09/29/23 fluticasone fur. 100 mcg-umeclid 1 inh inhalation DAILY 30 days #60 10/20/23 62.5 mcg-vilant 25 mcg ea inhalat.powder (Trelegy Ellipta) gabapentin 100 mg capsule 100 mg PO .COMPLEX 30 days #90 caps 10/29/23 gabapentin 300 mg capsule 300 mg PO HS #30 caps 10/29/23 pantoprazole 40 mg tablet,delayed 40 mg PO BID reflux 90 days #180 11/09/23 release tabs tobramycin 0.3 %-dexamethasone 2 drp ophthalmic (eye) BID right 11/15/23 0.05 % eye drops,suspension EAR 7 days #5 mL (Tobradex ST) levocetirizine 5 mg tablet See Rx Instructions .Route 01/25/24 .COMPLEX #30 tabs Allergies Allergy/AdvReac Type Severity Reaction Status Date / Time Sulfa (Sulfonamide Allergy Rash Verified 11/19/23 11:16 Antibiotics) [facility] Disclaimer: The information contained in this section may have been updated after the patient was seen, as this information can be updated by other users. Medical History (Updated 02/12/24 @ 11:21 by Roxanne Dong MD) Multiple lung nodules on CT Asthma Abnormal stress test Pulmonary nodule, right SNHL (sensorineural hearing loss) ETD (eustachian tube dysfunction) Right chronic serous otitis media Surgical History Hx of gastric bypass History of colonoscopy History of carpal tunnel release of both wrists History of neck surgery History of laparoscopic cholecystectomy Family History Other Family history of cancer Family history of diabetes mellitus type II Family history of hyperlipidemia Social History Smoking Status: Never smoker alcohol intake: former substance use type: denies use current occupational status: retired Travel in the last 8 weeks: None household members: spouse housing: house lives independently: No marital status: education level: high school service: No jail: No caffeine: Yes special calli needs: No agree to transfusion: No do you feel safe at home: Yes victim of physical abuse: No victim of emotional abuse: No victim of sexual abuse: No would you like helpful sources: No ROS Obtained: Yes All systems reviewed & no additional complaints except as documented Physical Exam General General appearance: alert and in no apparent distress Respiratory Respiratory exam: Present normal lung sounds bilaterally Cardiovascular Cardiovascular exam: Present regular rate and normal rhythm Expanded Upper Extremity Exam Left: Hand L/R front image: 2 1. laceration Neurological Exam Neurological exam: Present alert and oriented X3 Medical Decision Making Tray Inquiry Pt receiving controlled substance: No Vital Signs: 02/12/24 10:54 Temperature 98.5 F Temperature Source Oral Pulse Rate [Right] 75 Respiratory Rate 18 Blood Pressure [Right Arm] 144/93 H Blood Pressure Mean [Right Arm] 110 02 Sat by Pulse Oximetry 96 Oxygen Delivery Method Room Air Orders (Tests/Meds): ED MEDICATIONS Generic Name Dose Route Start Last Admin Trade Name Kendall PRN Reason Stop Dose Admin Tetanus/Reduced Diphtheria/Acell Pertussis 0.5 ml 02/12/24 11:20 Tet/Diphth/Pert-Adult 0.5ml Syringe IM 02/12/24 11:21 .ONCE ONE Medical Decision Narrative: 63-year-old male presents today with laceration to the volar aspect of the left distal phalanx. He is neurovascular intact has normal extension and flexion and sensory and capillary refill. Wound was irrigated and cleaned extensively Tdap was updated laceration repaired return precautions and wound management discussed and patient was discharged in stable condition Procedures Laceration Laceration 1: Site: finger Side (If applicable): left Size (cm): 2.5 Description: stellate, flap and irregular Depth: simple, single layer Local Anesthetic: lidocaine 1% and with epi Amount of anesthesia used (mL): 5 (Digital block) Pre-repair: wound explored, irrigated extensively, extensive debridement and wound margins revised Skin layer closed with: nylon Size (cm): 4-0 Number of sutures: 6 Technique: simple, interrupted Critical Care Critical Care Time Critical Care Time: No
[2024-02-12] MEDS: TET/DIPHTH/PERT-ADULT 0.5ML SYRINGE 0.5 ML IM (11:24)
[2024-02-12 11:33] VITALS: BP 144/93; PULSE 75; RESP 15; TEMP 36.7
== END 2024-02-12 11:42 | disposition home or self-care (01) ==
PROVIDERS: Emergency Provider Student in an Organized Health Care Education/Training Program; PCP Nurse Practitioner Family
DX: S61.213A Laceration without foreign body of left middle finger without damage to nail, initial encounter (principal); W26.0XXA Contact with knife, initial encounter; Z23 Encounter for immunization
CPT/HCPCS: 12001; 90471; 90715; 99283

== ENCOUNTER 2024-03-02 09:51 | Outpatient (CLI) | payer MEDICARE, BC, SELFPAY | END 2024-03-02 23:59 | disposition home or self-care (01) | LOC: LAB.DROPOF 03-03 09:51 | PROVIDERS: PCP Nurse Practitioner; Visit Provider Nurse Practitioner | DX: B35.1 Tinea unguium (principal); M79.675 Pain in left toe(s) | CPT/HCPCS: 87102; 87206; 87220 ==

== ENCOUNTER 2024-07-03 15:13 | Outpatient (CLI) | payer MEDICARE, BC, SELFPAY ==
--- NOTE | 2024-07-03 15:32 | XR_ITS ---
FINAL REPORT CLINICAL HISTORY: Right foot pain and swelling COMPARISON: None FINDINGS: RIGHT FOOT 3 views of the right foot were obtained. There is no acute fracture or dislocation. Visualized joint spaces are normally aligned. Soft tissues are unremarkable. A small plantar calcaneal spur is present. IMPRESSION: No acute bony abnormality. Reviewed, Interpreted and Dictated by Gilbert Perea MD Transcribed by Shayla Coleman Authenticated and [facility]
[2024-07-03 15:53] LABS: Basophils % 0.4 % (0.1-2.0); Eosinophils # 0.2 K/mm3 (0.0-0.4); Eosinophils % 1.6 % (0.1-12.0); Hematocrit 45.5 % (42.0-52.0); Hemoglobin 14.4 g/dL (14.1-18.0); Lymphocytes % 20.1 % (10-50); Mean Corpuscular HGB Conc 31.7 g/dL (31.8-35.4); Mean Corpuscular Volume 94.6 fl (80-94); Mean Platelet Volume 7.4 fl (7.4-10.4); Monocytes # 0.7 K/mm3 (0.1-1.0); Monocytes % 6.8 % (1.7-9.3); Neutrophils # 6.9 K/mm3 (1.8-7.8); Neutrophils % 71.1 % (37.0-80.0); Platelet Count 242 K/mm3 (142-424); Red Blood Count 4.81 M/mm3 (4.60-6.20); Red Cell Distribution Width 13.7 % (11.5-17.5); White Blood Count 9.7 K/mm3 (4.8-10.8)
== END 2024-07-03 23:59 | disposition home or self-care (01) ==
LOC: LAB 15:17
PROVIDERS: PCP Nurse Practitioner Family; Visit Provider Nurse Practitioner Family
DX: M79.89 Other specified soft tissue disorders (principal)
CPT/HCPCS: 73630; 84550; 85025

== ENCOUNTER 2024-11-07 11:31 | Outpatient (CLI) | payer MEDICARE, BC, SELFPAY ==
--- NOTE | 2024-11-07 12:00 | ECG_ITS ---
APPROVED REPORT Exam: Resting ECG HR:83 bpm ECG Measurements Heart Rate 83 AXES UT 167 P 75 QRSd 93 QRS 4 QT 331 T 54 QTc 371 Conclusion SINUS RHYTHM NORMAL ECG UNCONFIRMED REPORT Electronically signed by : Abdirashid Worthington MD 11/07/2024 19:19:40
[2024-11-07 12:08] VITALS: BMI 24.3
[2024-11-07 12:15] LABS: Basophils % 0.2 % (0.1-2.0); Eosinophils % 0.2 % (0.1-12.0); Hematocrit 40.8 % (42.0-52.0); Hemoglobin 13.6 g/dL (14.1-18.0); Lymphocytes # 1.4 K/mm3 (0.7-4.5); Lymphocytes % 9.2 % (10-50); Mean Corpuscular HGB Conc 33.3 g/dL (31.8-35.4); Mean Corpuscular Volume 90.1 fl (80-94); Mean Platelet Volume 9.1 fl (7.4-10.4); Monocytes # 1.2 K/mm3 (0.1-1.0); Monocytes % 7.9 % (1.7-9.3); Neutrophils # 12.5 K/mm3 (1.8-7.8); Neutrophils % 81.8 % (37.0-80.0); Platelet Count 251 K/mm3 (142-424); Red Blood Count 4.53 M/mm3 (4.60-6.20); Red Cell Distribution Width 12.9 % (11.5-17.5); White Blood Count 15.2 K/mm3 (4.8-10.8)
[2024-11-07 12:19] LABS: MANUAL DIFFERENTIAL MANUAL DIFFERENTIAL (MANUAL DIFF)
[2024-11-07 12:25] LABS: Albumin Level 4.1 g/dl (3.5-5.0); Chloride 107 mmol/L (98-107); Sodium 135 mmol/L (136-145)
[2024-11-07 12:26] LABS: Potassium 3.9 mmoL/L (3.5-5.1)
[2024-11-07 12:28] LABS: Alanine Aminotransferase 48 U/L (12-78); Albumin/Globulin Ratio 1.6 (1.1-1.8); Anion Gap 8.9 mEq/L (5-15); Aspartate Amino Transferase 46 U/L (17-59); Blood Urea Nitrogen 28 mg/dl (9-20); Carbon Dioxide 23 mmol/L (22.0-30.0); Creatinine Clearance Estimated 81 mL/min (50-200); Estimated Glomerular Filt Rate 75 ml/min (>60); GFR (African American) 91 ML/MIN (>60); Globulin 2.5 g/dL (1.3-3.2); Total Protein,Serum 6.6 g/dl (6.3-8.2)
[2024-11-07 12:29] LABS: Alkaline Phosphatase 61 U/L (38-126); Bilirubin,Total 0.7 mg/dl (0.2-1.3); Calcium 9.3 mg/dl (8.4-10.2); Glucose 131 mg/dl (74-100)
[2024-11-07 12:39] LABS: Lymphocytes % 16 % (10-50); Monocytes % 3 % (2-9); Neutrophils % 81 % (42-76); Platelet Estimate Normal; RBC Morphology Normal; Total Cells Counted 100
== END 2024-11-07 23:59 | disposition home or self-care (01) ==
PROVIDERS: PCP Nurse Practitioner Family; Visit Provider Orthopaedic Surgery
DX: Z01.812 Encounter for preprocedural laboratory examination (principal)
CPT/HCPCS: 80053; 85007; 85025; 85027; 93005

== ENCOUNTER 2024-11-14 10:49 | Outpatient (CLI) | payer MEDICARE, BC, SELFPAY ==
--- NOTE | 2024-11-14 10:52 | XR_ITS ---
FINAL REPORT TECHNIQUE: Chest PA & Lateral CLINICAL HISTORY: cough, asthma COMPARISON: 09/21/2022 FINDINGS: 2 views of the chest were performed. The heart size is normal. The mediastinum is within normal limits. There is no acute cardiopulmonary process. There are no pleural effusions. There is no pneumothorax. The bony thorax appears intact. IMPRESSION: No acute cardiopulmonary process. Reviewed, Interpreted and Dictated by Gilbert Perea MD Transcribed by Keyona Humphries Authenticated and [facility]
== END 2024-11-14 23:59 | disposition home or self-care (01) ==
PROVIDERS: PCP Nurse Practitioner Family; Visit Provider Nurse Practitioner Family
DX: R05.1 Acute cough (principal)
CPT/HCPCS: 71046

== ENCOUNTER 2024-11-15 08:36 | Day surgery (SDC) | payer MEDICARE, BC, SELFPAY ==
[2024-11-15 08:48] VITALS: BMI 24.3
[2024-11-15 09:02] VITALS: BP 133/72; PULSE 68; RESP 18; TEMP 36.5; O2SAT 98
--- NOTE | 2024-11-15 09:17 | SUR.PREOP ---
Pt. case cancelled per anesthesia due to respiratory illness. He was seen by his PCP yesterday and started on a Z-pack. Left lung sounds had rhonchi throughout. Elevated wbc on his lab work on 11/07. Anesthesia feels it is better to postpone case due to being elective.
== END 2024-11-15 09:24 | disposition home or self-care (01) ==
LOC: OR 08:37
PROVIDERS: PCP Nurse Practitioner Family; Visit Provider Orthopaedic Surgery
PROC: (CPT 64721; principal; 2024-11-15 09:45)
DX: Z53.09 Procedure and treatment not carried out because of other contraindication (principal)

== ENCOUNTER 2024-11-21 09:47 | Outpatient (CLI) | payer MEDICARE, BC, SELFPAY ==
[2024-11-21 16:48] LABS: Basophils % 0.2 % (0.1-2.0); Eosinophils # 0.1 K/mm3 (0.0-0.4); Eosinophils % 1.4 % (0.1-12.0); Hemoglobin 13.9 g/dL (14.1-18.0); Lymphocytes # 1.6 K/mm3 (0.7-4.5); Lymphocytes % 17.7 % (10-50); Mean Corpuscular HGB Conc 33.1 g/dL (31.8-35.4); Mean Corpuscular Volume 90.7 fl (80-94); Mean Platelet Volume 9.3 fl (7.4-10.4); Monocytes # 0.7 K/mm3 (0.1-1.0); Monocytes % 7.4 % (1.7-9.3); Neutrophils # 6.4 K/mm3 (1.8-7.8); Neutrophils % 73.1 % (37.0-80.0); Platelet Count 216 K/mm3 (142-424); Red Blood Count 4.63 M/mm3 (4.60-6.20); White Blood Count 8.8 K/mm3 (4.8-10.8)
== END 2024-11-21 23:59 | disposition home or self-care (01) ==
LOC: LAB.DROPOF 11-22 09:48
PROVIDERS: PCP Nurse Practitioner Family; Visit Provider Nurse Practitioner Family
DX: T81.82XA Emphysema (subcutaneous) resulting from a procedure, initial encounter (principal)
CPT/HCPCS: 85025

== ENCOUNTER 2024-12-13 13:25 | Outpatient (CLI) | payer MEDICARE, BC, SELFPAY ==
--- NOTE | 2024-12-13 13:28 | XR_ITS ---
FINAL REPORT CLINICAL HISTORY: right ankle pain COMPARISON: None FINDINGS: RIGHT ANKLE: Three views demonstrate an oblique fracture of the distal fibula above the level of the ankle joint. However the fracture line does extend into the ankle mortise. There is no widening of the ankle mortise. The medial malleolus is intact. IMPRESSION: Oblique fracture of the distal fibula as described. Reviewed, Interpreted and Dictated by Alida Guevara MD Transcribed by Shayla Coleman Authenticated and [facility]
== END 2024-12-13 23:59 | disposition home or self-care (01) ==
LOC: RAD 13:28
PROVIDERS: PCP Nurse Practitioner Family; Visit Provider Physician Assistant
DX: M25.571 Pain in right ankle and joints of right foot (principal); M79.89 Other specified soft tissue disorders
CPT/HCPCS: 73610

== ENCOUNTER 2024-12-28 10:03 | Outpatient (CLI) | payer MEDICARE, BC, SELFPAY ==
--- NOTE | 2024-12-28 10:05 | XR_ITS ---
FINAL REPORT TECHNIQUE: Right ankle 3 views CLINICAL HISTORY: rt ankle fx f/u COMPARISON: 12/13/2024 FINDINGS: RIGHT ANKLE: 3 images of the right ankle were obtained. There are persistent visible fracture lines in the lateral malleolus. Mild callus formation is present. The joint spaces are intact. Moderate soft tissue swelling is present. There is a small plantar calcaneal spur. IMPRESSION: Mild callus formation is present at the fracture of the lateral malleolus. Reviewed, Interpreted and Dictated by Gilbert Perea MD Transcribed by Shayla Coleman Authenticated and [facility]
== END 2024-12-28 23:59 | disposition home or self-care (01) ==
LOC: RAD 10:04
PROVIDERS: PCP Nurse Practitioner Family; Visit Provider Physician Assistant
DX: M25.571 Pain in right ankle and joints of right foot (principal); S82.831A Other fracture of upper and lower end of right fibula, initial encounter for closed fracture
CPT/HCPCS: 73610

== ENCOUNTER 2025-01-12 14:02 | Outpatient (CLI) | payer MEDICARE, BC, SELFPAY ==
[2025-01-12 14:27] LABS: Uric Acid 3.8 mg/dl (3.5-8.5)
== END 2025-01-12 23:59 | disposition home or self-care (01) ==
LOC: LAB.DROPOF 14:03
PROVIDERS: PCP Nurse Practitioner Family; Visit Provider Nurse Practitioner Family
DX: M79.671 Pain in right foot (principal); L81.9 Disorder of pigmentation, unspecified
CPT/HCPCS: 84550

== ENCOUNTER 2025-01-29 10:24 | Outpatient (CLI) | payer MEDICARE, BC, SELFPAY ==
--- OUTSIDE RECORDS SUMMARY | 2025-01-29 10:27 | XMS_ITS | Data Portability ---
Author Organization [facility] & [place] [facility] ADMIN Address [address] [place] [id number] Care Team Providers Care Crisis Mental Health Therapist Name Role Phone OTILIO QUINTANILLAE Primary Care Provider Assessment Encounter Date Assessment Date Assessment LastModified by Organization Details LastModified Time 09/28/2022 09/28/2022 62-year-old male with intermittent epigastric pain and history of Addi-en-Y gastric bypass -Symptoms markedly improved with increasing acid suppression therapy. Continue Pantoprazole -H. pylori breath test recently negative per PCP. -UGI series with SBFT previously ordered to evaluate anastomotic integrity but not performed by patient. -EGD was scheduled for June 2022 but he cancelled due to improvement. -Continue Carafate as needed. f/u 4 months [email or web address] Not available 09/28/2022 14:39:05 Plan of Treatment Reminders Order Date Submit Date Provider Last Modified By Organization Details Last Modified Time Details Appointments None record ed. Lab None record ed. Referral None record ed. Procedures None record ed. Surgeries None record ed. Imaging None record ed. Medication Orders None record ed. Patient TargetsNo targets recorded. Patient InstructionsNo instructions recorded. Reason for Referral None Reported. Problems Name Problem SNOMED Code Status Onset Date Resolution Date Notes Provider Name and Address Organization Details Recorded Time Epigastric pain 28978754 Active 022 Jose Coleman PA-C [address], [place], [address] , [facility] & [place] 14:37:24 Problem Notes None recorded. Medical Equipment None Reported. Medications Name Sig Start Date Stop Date Status Note LastModified by Organization Details LastModified Time Carafate 100 mg/mL oral suspension TAKE 10 ML BY MOUTH 4 TIMES DAILY ON AN EMPTY STOMACH active Not Available Not Available No t Available atorvastatin 10 mg tablet TAKE 1 TABLET BY MOUTH ONCE DAILY FOR 90 DAYS active Not Available Not Available No t Available benzonatate 200 mg capsule TAKE 1 CAPSULE BY MOUTH THREE TIMES DAILY FOR 30 DAYS active Not Available Not Available No t Available meloxicam 15 mg tablet TAKE 1 TABLET BY MOUTH ONCE DAILY active Not Available Not Available No t Available prednisone 10 mg tablets in a dose pack TAKE DIRECTED active Not Available Not Available No t Available pantoprazole 40 mg tablet,delayed release TAKE 1 TABLET BY MOUTH TWICE DAILY active Not Available Not Available No t Available gabapentin 100 mg capsule TAKE 1 CAPSULE BY MOUTH IN THE MORNING AND 2 IN THE EVENING FOR 30 DAYS active Not Available Not Available No t Available levofloxacin 500 mg tablet TAKE 1 TABLET BY MOUTH ONCE DAILY FOR 10 DAYS active Not Available Not Available No t Available albuterol sulfate HFA 90 mcg/actuation aerosol inhaler INHALE 1 PUFF BY MOUTH EVERY 4 HOURS NEEDED active Not Available Not Available No t Available oxybutynin chloride 5 mg tablet TAKE 1 TABLET BY MOUTH AT BEDTIME active Not Available Not Available No t Available Vitals None Recorded Social History None recorded. Functional Status None recorded. Mental Status None recorded. Family History Nothing Reported. Medical History No medical history recorded. Immunizations Vaccine Type Date Status Note Provider Nam e and Address Organization Details Recorded Time COVID-19, mRNA, LNP-S, PF, 100 mcg/0.5mL dose or 50 mcg/0.25mL dose 10/15/2021 completed Adria christine, [place] - [facility] - [place] & [place] 09/28/2022 14:16:29 COVID-19 vaccine, vector-nr, rS-Ad26, PF, 0.5 mL 02/11/2021 completed Adria Dash null, [place] - [facility] - [place] & [place] 09/28/2022 14:16:29 Past Encounters Encounter ID Performer Location Encounter Start Date Encounter Closed Date Diagnosis/Indication Diagnosis SNOMED-CT Code Diagnosis ICD10 Code Diagnosis Note [id number] Jose Coleman PA-C [facility] [address] [place] [address] 09/28/2022 14:13:01 09/28/2022 14:30:05 History of bypass of stomach 770427713 Z98.84 Epigastric pain 28589397 R10.13 Health Concerns Section Related Observation LastModified by Organization Detai ls LastModified Time None Recorded Concern Status LastModified by Organization Details LastModified Time None Recorded Advance Directives Directive None Recorded Payers Encounter Date Sequence Insurance Name Policy Number Policy Rojas Covered Member ID Rojas Member ID Guarantor Name 09/28/2022 1 [place] Guille Arboleda [id number] Guille Arboleda 09/28/2022 2 [place]PPO[place] [id number] R Hafsa Arboleda [id number] Guille Arboleda Notes Date Note Type Note Provider Name and Address Organization Details Recorded Time 09/28/2022 text/html Mr. Nkechi hunt s a very pleasant 62 yo male with history of Addi en Y gastric bypass, anastomotic ulceration, and chronic dyspepsia who presents via telephonic encounter today for follow-up. He has continued Pantoprazole 40 mg twice daily with good results. He is seldom using Carafate for breakthrough symptoms. He has noted a few dietary triggers for epigastric pain that he is trying to avoid. He denies any new complaints today.I spent a total of 14 minutes during this real-time clinical encounter that was initiated by the patient which started at 1413 and ended at 1427. Consent was obtained to engage in telephonic service. Greater than 50% of the time spent was devoted to counseling and coordinating care including review of patient record, patient lab data and studies as well as discussing diagnostic evaluation and workup, planned therapeutic intervention and further disposition of care. This include any additional research needed to obtain further information in formulating the plan of care for this patient. This includes counseling the patient about their disease and diagnosis, specifically as above. Jose Coleman PA-C [address], [place], [phone], [facility] - [place] & [place] 09/28/2022 14:41:51
--- NOTE | 2025-01-29 10:29 | XR_ITS ---
FINAL REPORT CLINICAL HISTORY: Rt Ankle pain FX 7 WKS AGO NO SX COMPARISON: 12/28/2024 FINDINGS: RIGHT ANKLE 3 views of the right ankle were obtained. There is an oblique mildly displaced fracture of the distal fibula with evidence of healing. The ankle mortise is intact. There is a well-corticated ossific density measuring 5 mm inferior to the medial malleolus. A small plantar spur is noted. Soft tissues are unremarkable. IMPRESSION: Healing distal fibular fracture. Reviewed, Interpreted and Dictated by Gilbert Perea MD Transcribed by Keyona Humphries Authenticated and [facility]
--- NOTE | 2025-01-29 13:00 | XR_ITS ---
FINAL REPORT CLINICAL HISTORY: fx of distal end of right fibula FINDINGS: Using L1-4, the bone mineral density of the spine is 0.924 g/cm2, corresponding to T-score of -1.5. Using the left hip, the bone mineral density of the femoral neck is 0.727 g/cm2, corresponding to a T-score of -1.5. Using the right hip, the bone mineral density of the femoral neck is 0.752 g/cm2, corresponding to a T-score of -1.3. FRAX 10 year fracture risk is 6.2% for a hip fracture and 0.9% for a major osteoporotic fracture. IMPRESSION: Osteopenia of the lumbar spine and bilateral femoral necks. NOTE: T-score: Standard deviation compared with peak bone mass of young adult mean. *Following the recommendations of the International Society of Bone densitometry, classification of hip BMD is based on the lower of two T-scores; total hip or femoral neck. Reviewed, Interpreted and Dictated by Gilbert Perea MD Transcribed by Jacqui Gan Authenticated and [facility]
== END 2025-01-29 23:59 | disposition home or self-care (01) ==
LOC: RAD 10:26
PROVIDERS: PCP Nurse Practitioner Family; Visit Provider Nurse Practitioner Family
DX: M85.89 Other specified disorders of bone density and structure, multiple sites (principal); S82.831A Other fracture of upper and lower end of right fibula, initial encounter for closed fracture; M25.471 Effusion, right ankle
CPT/HCPCS: 73610; 77080

== ENCOUNTER 2025-02-13 13:32 | Outpatient (CLI) | payer MEDICARE, BC, SELFPAY ==
--- OUTSIDE RECORDS SUMMARY | 2025-02-13 13:34 | XMS_ITS | Data Portability ---
Author Organization [facility] & [place] [facility] ADMIN Address [address] [place] [address] Care Team Providers Care Musical Instrument Mechanic Name Role Phone OTILIO QUINTANILLAE Primary Care Provider [phone] Assessment Encounter Date Assessment Date Assessment LastModified [...] -Continue Carafate as needed. f/u 4 months [email or web address] Not available 09/28/2022 14:39:05 Plan of Treatment [...] Address Organization Details Recorded Time Epigastric pain [id number] Active 022 Jose Coleman PA-C [address], [place], [address] , [facility] & [place] 14:37:24 Problem Notes None recorded. Medical Equipment [...] completed Adria christine, [place] - [facility] - [place] & [place] 09/28/2022 14:16:29 COVID-19 vaccine, vector-nr, rS-Ad26, PF, 0.5 mL 02/11/2021 completed Adria Dash null, [place] - [facility] - [place] & [place] 09/28/2022 14:16:29 Past Encounters Encounter ID Performer Location Encounter Start Date Encounter Closed Date Diagnosis/Indication Diagnosis SNOMED-CT Code Diagnosis ICD10 Code Diagnosis Note [id number] Jose Coleman PA-C [facility] [address] [place] [address] 09/28/2022 14:13:01 09/28/2022 14:30:05 History of bypass of stomach 968637782 Z98.84 Epigastric pain 83433447 R10.13 Health Concerns Section Related Observation LastModified by Organization Detai ls LastModified Time None Recorded Concern Status LastModified by Organization Details LastModified Time None Recorded Advance Directives Directive None Recorded Payers Encounter Date Sequence Insurance Name Policy Number Policy Rojas Covered Member ID Rojas Member ID Guarantor Name 09/28/2022 1 [place] Guille Arboleda [id number] Guille Arboleda 09/28/2022 2 [place] [id number] R Hafsa Arboleda [id number] Guille Arboleda Notes Date Note Type [...] diagnosis, specifically as above. Jose Coleman PA-C [address], [place], [address], [facility] - [place] & [place] 09/28/2022 14:41:51
--- NOTE | 2025-02-13 14:00 | MR_ITS ---
FINAL REPORT CLINICAL HISTORY: Recurrent right metatarsal swelling, redness, pain FX FOOT/ ANKLE X 3 MONTHS LATERAL SIDED FOOT/ANKLE PAIN SWELLING ENTIRE FOOT/ ANKLE INSTABILITY IN ANKLE COMPARISON: None FINDINGS: Multiplanar MR imaging of the right foot was performed without contrast. The Achilles tendon is intact. The plantar fascia is intact. The bony structures are intact without evidence of fracture, bone bruise or marrow edema. There is an oblique nondisplaced fracture of the distal fibula with moderate surrounding edema. There appears to be bridging callus formation consistent with subacute fracture. There is a small ankle joint effusion. An intra-articular loose body anterior to the ankle mortise measures 5 mm, well seen on image 18 of series 9. The flexor and extensor tendons are intact. The musculature is intact. The plantar aponeurosis is intact. No soft tissue mass or cyst is identified. IMPRESSION: Healing oblique fracture distal fibula with associated moderate edema. Joint effusion with intra-articular loose body anterior mortise. Reviewed, Interpreted and Dictated by Gilbert Perea MD Transcribed by Keyona Humphries Authenticated and . [facility]
== END 2025-02-13 23:59 | disposition home or self-care (01) ==
LOC: RAD 13:33
PROVIDERS: PCP Nurse Practitioner Family; Visit Provider Nurse Practitioner Family
DX: M79.671 Pain in right foot (principal)
CPT/HCPCS: 73718

== ENCOUNTER 2025-02-15 08:43 | Outpatient (CLI) | payer MEDICARE, BC, SELFPAY ==
--- OUTSIDE RECORDS SUMMARY | 2025-02-15 08:47 | XMS_ITS | Data Portability ---
Author Organization [facility] & [place] [facility] ADMIN Address [address] [place] [address] Care Team Providers Care C Software Developer Name Role Phone OTILIO QUINTANILLAE Primary Care [...] -Continue Carafate as needed. f/u 4 months [email or web address] Not available 09/28/2022 14:39:05 Plan of Treatment [...] Address Organization Details Recorded Time Epigastric pain [id number] Active 022 Jose Coleman PA-C [address], [place], [address] , [facility] & [place] 14:37:24 Problem Notes None recorded. Medical Equipment [...] dose or 50 mcg/0.25mL dose 10/15/2021 completed Adrai christine, [place] - [facility] - [place] & [place] 09/28/2022 14:16:29 COVID-19 vaccine, vector-nr, rS-Ad26, PF, 0.5 mL 02/11/2021 completed Adria Dash null, [place] - [facility] - [place] & [place] 09/28/2022 14:16:29 Past Encounters Encounter ID Performer Location Encounter Start Date Encounter Closed Date Diagnosis/Indication Diagnosis SNOMED-CT Code Diagnosis ICD10 Code Diagnosis Note [id number] Joes Coleman PA-C [facility] [address] [place] [address] 09/28/2022 14:13:01 09/28/2022 14:30:05 History of bypass of stomach 789854353 Z98.84 Epigastric pain 95039239 R10.13 Health Concerns Section Related Observation LastModified by Organization Detai ls LastModified Time None Recorded Concern Status LastModified by Organization Details LastModified Time None Recorded Advance Directives Directive None Recorded Payers Encounter Date Sequence Insurance Name Policy Number Policy Rojas Covered Member ID Rojas Member ID Guarantor Name 09/28/2022 1 [place] Guille Arboleda [id number] Guille Arboleda 09/28/2022 2 [place] [id number] R Hafsa Arboleda [id number] Guille Arboleda Notes Date Note Type [...] diagnosis, specifically as above. Jose Coleman PA-C [address], [place], [address], [facility] - [place] & [place] 09/28/2022 14:41:51
--- NOTE | 2025-02-15 09:08 | XR_ITS ---
FINAL REPORT CLINICAL HISTORY: right ankle pain FINDINGS: RIGHT ANKLE 3 views of the right ankle were obtained. There is an oblique, nondisplaced fracture of the distal fibula. A well-corticated ossific density is seen inferior to the medial malleolus measuring 5 mm likely due to old trauma. There is mild soft tissue edema noted. IMPRESSION: Oblique, nondisplaced fracture of the distal fibula. Reviewed, Interpreted and Dictated by Gilbert Perea MD Transcribed by Marychuy Malone Authenticated and [facility]
== END 2025-02-15 23:59 | disposition home or self-care (01) ==
LOC: RAD 08:46
PROVIDERS: PCP Nurse Practitioner Family; Visit Provider Physician Assistant
DX: M25.571 Pain in right ankle and joints of right foot (principal); M25.471 Effusion, right ankle
CPT/HCPCS: 73610

== ENCOUNTER 2025-07-09 09:33 | Outpatient (CLI) | payer MEDICARE, SELFPAY ==
--- OUTSIDE RECORDS SUMMARY | 2025-05-25 10:55 | XMS_ITS | Encounter Summary ---
Author Organization [facility] Address [address] [place] [address] Care Team Providers Care Vacuum Metalizing Supervisor Name Role Phone Chaparro Valles MD Unavailable [phone] Camryn Velazco MD Unavailable Unavailable Susan Goddard RN Unavailable Unavailable Frances Christine RN Unavailable Unavaila Saundra Ruiz RN Unavailable Unavailable Alison Sherman NP Unavailable Abe Plaza MD Unavailable [phone] Fili Andrade Primary Care Provider [phone] Reason for Referral * Consult, Test & Treat (Routine) - Not Needed Specialty Diagnoses / Procedures Referred By Contac t Referred To Contact Diagnoses Lumbar radiculopathy Procedures PMA LUMBAR FORAMINAL EPIDURAL INJ (SUBSEQUENT) Sharon Elizabeth NP Phone: tel: fax: [address] [address] Phone: tel: Referral ID Status Reason Start Date Expiration Date V isits Requested Visits Authorized [id number] Not Needed 04/27/2025 04/27/2026 1 1 Reason for Visit * Reason Comments Back Pain * Consult, Test & Treat (Routine) - Not Needed Specialty Diagnoses / Procedures Referred By Contac t Referred To Contact Diagnoses Lumbar radiculopathy Procedures PMA LUMBAR FORAMINAL EPIDURAL INJ (SUBSEQUENT) Sharon Elizabeth NP Phone: tel: fax: [facility] [address] [place] [address] Phone: tel: Referral ID Status Reason Start Date Expiration Date V isits Requested Visits Authorized [id number] Not Needed 04/27/2025 04/27/2026 1 1 Encounter Details Date Type Department Care Team (Latest Contact Info) Description 05/25/2025 10:55 AM EDT - 05/25/2025 11:00 AM EDT Hospital Encounter [facility] Pain Management - Dr. [address] [place] [address] Abe Plaza MD [address] [facility] [address] [place] [address] Lumbar radiculopathy (Primary Dx); Spinal stenosis of lumbar region with neurogenic claudication Discharge Disposition: Home or Self Care Social History Tobacco Use Types Packs/Day Years Used Date Smoking Tobacco: Former Cigarettes Smokeless Tobacco: Never Comments:Quit approx. age 34 Alcohol Use Standard Drinks/Week Comments No 0 (1 standard drink = 0.6 oz pur e alcohol) Sex and Gender Information Value Date Recorded Sex Assigned at Not on file Legal Sex Male 2:47 PM EST Gender Identity Not on file Sexual Orientation Not on file documented as of this encounter Last Filed Vital Signs Vital Sign Reading Time Taken Comments Blood Pressure 125/65 05/25/2025 11:11 AM EDT Pulse 75 05/25/2025 11:11 AM EDT Temperature 36.2 C (97.2 F) 05/25/2025 10:59 AM EDT Respiratory Rate 16 05/25/2025 11:11 AM EDT Oxygen Saturation 98% 05/25/2025 11:11 AM EDT Inhaled Oxygen Concentration - - Weight 74.8 kg (165 lb) 05/25/2025 10:59 AM EDT Height 177.8 cm (5' 10 ) 05/25/2025 10:59 AM EDT Body Mass Index 23.68 05/25/2025 10:59 AM EDT documented in this encounter Discharge Instructions * Patient Instructions* Cherise Yarbrough, RN - 05/25/2025 11:20 AM EDT [facility] [place] [address] AMBULATORY PROCEDURE DEPARTMENT Steroid Block Discharge Instructions [facility] Appointments After Hours Message Line [phone] Today, you have had the following procedure: Epidural Steroid Injection, which was performed by and Pam Keep band-aid to needle site for 24 hours, then remove. Soreness at the needle site is normal and can be expected for at least the first 24 hours. The steroid will begin to work in 24 to 72 hours after the injection. You may shower in 24 hours. No tub baths, hot tubs, whirlpools or swimming for 48 hours. Rest for the duration of the day. You may resume your normal activity the next day. Call your doctor as soon as possible should any of the following occur: any unusual drainage at thesite, fever or weakness, new onset of incontinence, or severe pain. If it is after hours and we arenot available, please go to the nearest emergency room Relief from your pain after having this injection is very individual and varies from patient to patient. You will be asked for the following information during your next visit: New Medications Maximum percentage of pain relief from the injection and how long it lasted. Current percentage of pain relief Improvements in pain since injection (i.e intensity, frequency, duration) Any other problems or concerns as they relate to your pain. IF YOU HAVE AN EMERGENCY, PLEASE GO TO THE NEAREST EMERGENCY ROOM. For non emergency questions or concerns please contact [facility] at [phone]. You have received a numbing medication during your procedure that could make your legs or arms feelweak. Expectations from the procedure: 1. Temporary numbness/weakness from the numbing medicine. This will typically last 2-3 hours. 2. Temporary increase in pain. Your pain may flare up for approximately a day or so. 3. Temporary pain at injection site--ice and heat helps. Possible side effects: Steroids in the spine have not been shown to have the same effects as steroids pills; however, there can be occasional side effects from this procedure: 1. Restlessness, trouble sleeping or jitteriness 2. Increased hunger 3. Flushing or hot flashes - may consider Benadryl 4. Increased blood sugar 5. Headache or hiccups 6. Menstrual spotting- even if you are post-menopausal, this can happen 7. Cramping or hemalatha horse type muscle discomfort 8. Depression with steroids wearing off. 9. Similar side effects to oral pills if you have had them before These side effects do not happen typically; however, they do happen. Do not be concerned if you encounter this, it typically resolves within a couple days. Risks: 1. Spinal headache - Improves with laying down. Increase caffeine and fluid intake. Call us as soon as possible. 2. Nerve or spinal cord injury (unusual and rare) 3. Spinal injection, infection, or bleeding (unusual and rare) Please review your blood pressure. If you are not currently treated for high blood pressure and your blood pressure is above the recommended hypertension diagnostic parameters of 120/80, please follow up with your primary care provider in the next week for reevaluation and further management. If you use tobacco products, we strongly encourage you to stop using these products. This will greatly improve many aspects of your health. If you take aspirin (even low dose): There have recently been recommendations to discontinue aspirin 6 days prior to spinal procedures. If your physician does not feel this is appropriate, we will proceed with the understanding that there may be a slight increased risk of intraspinal bleeding. If you take aspirin based on medical provider recommendation, please check with prescribing provider before discontinuing the aspirin. You may resume your aspirin the day after your procedure. Blood Sugar Injection of steroids may cause a temporary increase in your blood sugar. Monitor frequently over the next few days. Contact the physician who manages your diabetes if there is significant increase above your normal range. You may eat prior to your next injection. documented in this encounter Medications at Time of Discharge acetaminophen (TYLENOL) 325 mg tablet Take 650 mg by mouth every 4 hours as needed. atorvastatin (LIPITOR) 10 mg Tablet Take 1 Tab by mouth daily. 90 Tab 1 05/10/2018 ciprofloxacin-hy drocortisone (CIPRO HC OTIC) 0.2-1 % Drops, Suspension Place 4 Drops into ears 2 times daily. esomeprazole (NEXIUM) 40 mg Capsule, Delayed Release(E.C.) TAKE ONE CAPSULE BY MOUTH ONCE DAILY IN THE MORNING BEFORE BREAKFAST 90 Cap 1 05/06/2018 GABAPENTIN PO Take by mouth. pantoprazole (PROTONIX) 40 mg Tablet, Delayed Release (E.C.) Take 40 mg by mouth daily. sucralfate (CARAFATE) 100 mg/mL suspension Take 10 mL by mouth 4 times daily. 1200 mL 3 02/23/2017 documented as of this encounter Procedure Notes * Abe Plaza MD - 05/25/2025 11:[address] [facility] Location: [facility] Date of Procedure: 05/25/2025 Procedure Performed By: Lola Plaza MD Referring Provider: Fili Andrade Primary Care Provider: Fili Andrade Preoperative Diagnoses: 1. Lumbar radiculopathy 2. Spinal stenosis of lumbar region with neurogenic claudication Postoperative Diagnoses: Same Operative Procedures: Lumbar Transforaminal Epidural Injection, Fluoroscopic Guidance for needle placement Bilateral at L5-S1 Image Guidance for Needle Placement: Fluoroscopy Anesthesia: Local Complications: None Evaluation For Procedure: The patient was last seen 02/16/25 for a bilateral transforaminal epidural steroid injection at the L5-S1 level. Response is reported as 90 % relief lasting for 2 months. The pain then gradually returned in the subsequent weeks. Pain intensity at worst: 10 /10 Pain intensity at best: 6 /10 Current pain intensity: 8 /10 Documentation of Medical Necessity: (Patient is having a subsequent epidural injection in this spinal region- (Radiculopathy or radicular pain or neurogenic claudication is present Pain scale documented- See documented VAS 3 months or more of pain relief from previous injection with 50% or more relief in conjunction withconservative management )) Details Of Procedure: The patient was taken into the procedure room and assisted to move onto the table into the prone position. Fluoroscopy was utilized to identify/evaluate the planned injection area. A sterile prep (using Chloraprep) and drape of the area was performed. The needle puncture site was anesthetized with an injection of lidocaine. Under fluoroscopic guidance, a 22/5.0 gauge Spinal needle was incrementally advanced into the Bilateral L5-S1 intervertebral foramina. No blood or CSF was aspirated. Needle placement was confirmed with an injection of Isovue/Omnipaque 300. Continuous fluoroscopic evaluation of this injection in theAP and lateral planes confirmed transforaminal flow into the epidural space on both sides. No vascular uptake was noted during continuous real-time fluoroscopy . 7.5 mg of Celestone (Kenalog as currently unavailable per our pharmacy) was injected on each side. The needle was cleared and removed intact. The patient tolerated the procedure well and no complications were noted. After an appropriate period of observation, the patient was discharged in good condition. Exposure time during procedure using fluoroscopy: (6045F): 05/25/2025 11:01 AM 02/16/2025 11:49 AM 11/08/2024 11:44 AM 07/25/2024 11:41 AM 04/21/2024 12:06 PM 01/19/2024 12:02 PM 10/06/2023 11:45 AM EXPOSURE TIME DURING PROCEDURE USING FLUROSCOPY Fluoroscopy Time (Seconds) 28 Seconds 17 Seconds 22 Seconds 28 Seconds 21 Seconds 25 Seconds 21 Seconds Recommended follow up: The patient can follow up on an as needed basis, if symptoms continue/reoccur. Thanks very much to Fili Andrade for giving us the opportunity to be involved in this patient's care. MIPS Quality Measures: 1) Screening For Hypertension and Follow-up (Measure #317): Today's BP was 05/25/25 : 130/71 (Normal defined as SBP<120; DBP,80) (G8950) Documented BP is in the pre-hypertensive or hypertensive range-patient was informed and referred to primary care physician for evaluation 2) Screening For Tobacco Use and Intervention in Adults-Age 18 and older (Measure #226): The patient was screened for tobacco use Yes G9903- Patient screened for tobacco AND identified as a NON-USER N/A documented in this encounter Plan of Treatment Scheduled Orders Name Type Priority Associated Diagnoses Orde r Schedule PMA LUMBAR FORAMINAL EPIDURAL INJ (SUBSEQUENT) Procedures Routine Lumbar radiculopathy 1 Occurrences starting 05/25/2025 until 05/25/2025 documented as of this encounter Visit Diagnoses Diagnosis Lumbar radiculopathy- Primary Thoracic or lumbosacral neuritis or radiculitis, unspecified Spinal stenosis of lumbar region with neurogenic claudication Spinal stenosis, lumbar region, with neurogenic claudication documented in this encounter Administered Medications Inactive Administered Medications - up to 3 most recent administrations Medication Order MAR Action Action Date Dose Rate Site betamethasone acetate-betamethasone sodium phosphate (CELESTONE) injection 12-18 mg 12-18 mg, Epidural, INTRA-PROCEDURE, Starting on Wed05/25/25 at 1105, For 1 dose, Intra-Procedure (GI), For intramuscular and regional use only, NOT for intravenous use. Given 05/25/2025 11:20 AM EDT 15 mg documented in this encounter Additional Health Concerns Assessment Noted Time PHQ-9 Depression Total Score: 1 09/06/20 17 10:36 AM EST documented as of this encounter Care Teams Vacuum Metalizing Supervisor Relationship Specialty Start Date End Date Fili Andrade [address] [place] [address] PCP - General 02/06/22 Chaparro Valles MD [address] [place] [address] Consulting Physician Gastroenterology 09/11/15 Camryn Velazco MD [address] [place] [address] Anesthesiology 12/19/20 Susan Goddard, RN Registered Nurse 12/23/20 Frances Christine RN Registered Nurse 12/23/20 Saundra Montanez, LASHANDA Registered Nurse 01/01/21 Alison Sherman NP Nurse Practitioner Nurse Practitioner 03/19/21 Abe Plaza MD Anesthesiology 09/04/21 documented as of this encounter
--- OUTSIDE RECORDS SUMMARY | 2025-05-25 11:01 | XMS_ITS | Encounter Summary ---
Author Organization [facility] Address [address] [place] [address] Care Team Providers Care Hyperbaric Nurse Name Role Phone Chaparro Valles MD Unavailable [phone] Camryn Velazco MD Unavailable Unavailable Susan Goddard RN Unavailable Unavailable Frances Christine RN Unavailable UnavailSaundra Gutierrez RN Unavailable Unavailable Alison Sherman NP Unavailable [phone] Abe Plaza MD Unavailable [phone] Fili Andrade Primary Care Provider [phone] Encounter Details Date Type Department Care Team (Latest Contact Info) Description 05/25/2025 11:01 AM EDT - 05/25/2025 11:59 PM EDT Hospital Encounter [facility], Diagnostic Services [address] [place], [place] [address] Pain Discharge Disposition: Home or Self Care Social [...] on file documented as of this encounter Medications at Time of Discharge [...] 3 02/23/2017 documented as of this encounter Plan of Treatment Not on file documented as of this encounter Procedures Procedure Name Priority Date/Time Associated Diagnosis Comments DIAG-RAD [facility] AMBULATORY PAIN Routine 05/25/2025 11:32 AM EDT Pain documented in this encounter Results * DIAG-RAD [facility] AMBULATORY PAIN (05/25/2025 11:32 AM EDT) Impressions Marleny Vázquez, RT - 05/25/2025 11:33 AM EDT ABOVE Narrative Marleny Vázquez, RT - 05/25/2025 11:33 AM EDT Fluoroscopic assistance was provided and/or was available during the above procedure. If images are being stored, they are for documentation purposes only. Please see performing physician for interpretation. A Radiologist was not in attendance and will not be providing an interpretation of these images. Fluoro time = 0 minutes and 28 seconds. us Abe Plaza MD IMG FLUOROSCOPY ORDERABLES Final Result documented in this encounter Visit Diagnoses Diagnosis Pain Generalized pain documented in this encounter Additional Health Concerns Assessment Noted Time PHQ-9 Depression Total Score: 1 09/06/20 17 10:36 AM EST documented as of this encounter Care Teams Hyperbaric Nurse Relationship Specialty Start Date End Date Fili Andrade [address] [place] [address] PCP - General 02/06/22 Chaparro Valles MD [address] [place] [address] Consulting Physician Gastroenterology 09/11/15 Camryn Velazco MD [address] [place] [address] Anesthesiology 12/19/20 Susan Goddard, RN Registered Nurse 12/23/20 Frances Christine RN Registered Nurse 12/23/20 Saundra Montanez, RN Registered Nurse 01/01/21 Alison Sherman NP Nurse Practitioner Nurse Practitioner 03/19/21 Abe Plaza MD Anesthesiology 09/04/21 documented as of this encounter
--- NOTE | 2025-07-09 09:35 | XR_ITS ---
FINAL REPORT CLINICAL HISTORY: right wrist pain FINDINGS: AP, oblique, and lateral views of the right wrist were obtained. There is no prior exam for comparison. There is no acute fracture or dislocation. Degenerative joint disease is noted. The soft tissues are normal. IMPRESSION: Degenerative changes without acute osseous abnormality of the right wrist. Reviewed, Interpreted and Dictated by Tracy Sweeney MD Transcribed by Keyona Humphries Authenticated and [facility]
--- OUTSIDE RECORDS SUMMARY | 2025-07-09 09:52 | XMS_ITS | Patient Health Record ---
Author Organization [facility] Address [address] [place], [place] [id number] Care Team Providers Care International Student Counselor Name Role Phone Anthony Brandon MD Primary Care Provider Unavail able Bal Mock Unavailable [phone] Reason For Referral No Information Medications Medication SIG (Take, Route, Frequency, Duration) Notes Start Date End Date Status Claritin 10 MG Tablet Claritin( 10MG Oral daily ) Active -Hx Entry Oral daily; Duration: 0 05/19/2012 Active Effexor XR 75 MG Capsule Extended Release 24 Hour Effexor XR( 75MG Oral daily ) Active -Hx Entry Oral daily; Duration: 0 05/19/2012 Active Vicodin 5-500MG Vicodin( 5-500MG Oral as needed ) Active -Hx Entry Oral as needed; Duration: 0 *Reorder from [facility] for eRx and Interaction Alerts* 05/19/2012 Active Social History Social History Additional Details Category Social Info Options Details Migrated Social History Migrated Social History Tobacco use, Active, Attribute Title : Never smoker,, Alcohol use, Active, Attribute Title : Never, Plan Of Treatment No Information Insurance Providers Payer Name Payer Address Payer Phone Subscriber Number Group Number Insured Name Patient Relationship to Insured Coverage Start Date Coverage End Date [place] [address] [place] [address] [id number] Guille Contreras Self - [facility] the [facility] [address] [place] [address] [id number] Guille Contreras Self - patient is the insured
--- OUTSIDE RECORDS SUMMARY | 2025-07-09 09:52 | XMS_ITS | Encounter Summary ---
Author Organization [facility] Address [address] [place] [address] Care Team Providers Care Loan Secretary Name Role Phone Chaparro Valles MD Unavailable [phone] None, None Primary Care Provider UnavailCamryn Daugherty MD Unavailable Unavailable Susan Goddard RN Unavailable Unavailable Frances Christine RN Unavailable UnavailSaundra Gutierrez RN Unavailable Unavailable Alison Sherman NP Unavailable [phone] Abe Plaza MD Unavailable [phone] Fili Andrade Primary Care Provider [phone] Encounter Details Date Type Department Care Team (Late st Contact Info) Description 08/02/2020 Orders Only Pain Management [address] [place] [address] Lorrie Sutton RN Lumbar spondylosis (Primary Dx) Social History Tobacco Use Types Packs/Day Years [...] on file Sexual Orientation Not on file COVID-19 Exposure Response Date Recorded In the last month, have you been in contact with someone who was confirmed or suspected to have Coronavirus / COVID-19? Unable to assess 08/02/2020 10:05 AM ED T documented as of this encounter Plan of Treatment Scheduled Orders Name Type Priority Associated Diagnoses Orde r Schedule PMA LUMBAR PARAVERTEBRAL INJ (INITIAL) Procedures Routine Lumbar spondylosis 1 Occurrences starting 08/02/2020 until 08/02/2021 documented as of this encounter Visit Diagnoses Diagnosis Lumbar spondylosis- Primary Lumbosacral spondylosis without myelopathy documented in this encounter Additional Health Concerns Assessment Noted Time PHQ-9 Depression Total Score: 1 09/06/20 17 10:36 AM EST documented as of this encounter Care Teams Loan Secretary Relationship Specialty Start Date End Date None, None [address] [place] [address] PCP - General 11/04/18 02/05/22 Fili Andrade [address] [place] [id number] PCP - General 02/06/22 Chaparro Valles MD [address] [place] [address] Consulting Physician Gastroenterology 09/11/15 Camryn Velazco MD [address] [place] [address] Anesthesiology 12/19/20 Susan Goddard, RN Registered Nurse 12/23/20 Frances Christine RN Registered Nurse 12/23/20 Saundra Montanez, LASHANDA Registered Nurse 01/01/21 Alison Sherman NETWORK DEVELOPMENT COORDINATOR Nurse Practitioner Nurse Practitioner 03/19/21 Abe Plaza MD Anesthesiology 09/04/21 documented as of this encounter
--- OUTSIDE RECORDS SUMMARY | 2025-07-09 09:52 | XMS_ITS | Encounter Summary ---
Author Organization [facility] Address [address] [place] [address] Care Team Providers Care Architecture Consultant Name Role Phone Chaparro Valles MD Unavailable [phone] Gonzalo Smith MD Primary Care Provider [phone] None, None Primary Care Provider UnavailCamryn Daugherty MD Unavailable Unavailable Susan Goddard RN Unavailable Unavailable Frances Christine RN Unavailable Unavaila Saundra Ruiz RN Unavailable Unavailable Alison Sherman NP Unavailable [phone] Abe Plaza MD Unavailable [phone] Fili Andrade Primary Care Provider [phone] Reason for Visit * Reason Comments Medications Refill surescripts- effexor Encounter Details Date Type Department Care Team (Late st Contact Info) Description 05/05/2011 Refill [facility] Physicians - Primary Care, [address] [address] Anthony Brandon MD [address] [place] [address] Medications Refill (surescripts- effexor) Social History Tobacco Use Types Packs/Day Years Used Date Smoking Tobacco: Never Alcohol Use Standard Drinks/Week Comments No 0 (1 standard drink = 0.6 oz pur e alcohol) Sex and Gender Information Value Date Recorded Sex Assigned at Not on file Legal Sex Male 2:47 PM EST Gender Identity Not on file Sexual Orientation Not on file documented as of this encounter Miscellaneous Notes * Telephone Encounter - Jeanne Wellington - 05/05/2011 10:06 AM EDT Last visit 04/10/11 documented in this encounter Plan of Treatment Not on file documented as of this encounter Visit Diagnoses Not on filedocumented in this encounter Care Teams Architecture Consultant Relationship Specialty Start Date End Date Gonzalo Smith MD [address] [place] [address] PCP - General Internal Medicine 01/01/16 11/03/18 None, None [address] [facility] [place] [address] PCP - General 11/04/18 02/05/22 Fili Andrade [address] [id number] PCP - General 02/06/22 Chaparro Valles MD [address] [place] [address] Consulting Physician Gastroenterology 09/11/15 Camryn Velazco MD [address] [place] [address] Anesthesiology 12/19/20 Susan Goddard, LASHANDA Registered Nurse 12/23/20 Frances Christine RN Registered Nurse 12/23/20 Saundra Montanez, LASHANDA Registered Nurse 01/01/21 Alison Sherman, CLICKING MACHINE OPERATOR Nurse Practitioner Nurse Practitioner 03/19/21 Abe Plaza MD Anesthesiology 09/04/21 documented as of this encounter
--- OUTSIDE RECORDS SUMMARY | 2025-07-09 09:52 | XMS_ITS | Encounter Summary ---
Author Organization [facility] Address [address] [place] [address] Care Team Providers Care Operating Room Orderly Name Role Phone Chaparro Valles MD Unavailable [phone] Gonzalo Smith MD Primary Care Provider [phone] None, None Primary Care Provider UnavailCamryn Daugherty MD Unavailable Unavailable Susan Goddard RN Unavailable Unavailable Frances Christine RN Unavailable UnavailSaundra Gutierrez RN Unavailable Unavailable Alison Sherman NP Unavailable [phone] Abe Plaza MD Unavailable [phone] Fili Andrade Primary Care Provider Reason for Visit * Reason Comments Medications Refill escribe-nexium,atorv astatin Encounter Details Date Type Department Care Team (Late st Contact Info) Description 03/09/2017 Refill [facility] Physicians - Primary Care, [place] [address] [place] [address] Gonzalo Smith MD [address] [place] [address] Medications Refill (escribe-nexium,atorvast atin) Social History Tobacco Use Types Packs/Day Years [...] encounter Miscellaneous Notes * Telephone Encounter - Gonzalo Smith MD - 03/11/2017 9:00 AM EDT Okay * Telephone Encounter - Mana Pineda - 03/11/2017 8:[address] Smith he had a physical done with Domitila on 07-30-16 so he is not due for a physical yet. * Telephone Encounter - Gonzalo Smith MD - 03/10/2017 4:12 PM EDT This patient canceled his appointment with mi for a physical after getting labs for physical ordered by Valentina in July. He needs appointment for physical in next 30 days with Valentina. We will not be able to refill any more medications until physical is done * Telephone Encounter - Carol Albright RN - 03/10/2017 8:52 AM EDT Last ov 12/10/16, no future ov documented in this encounter Plan of Treatment Not on file documented as of this encounter Visit Diagnoses Not on filedocumented in this encounter Additional Health Concerns Assessment Noted Time PHQ-9 Depression Total Score: 1 07/30/20 16 9:36 AM EDT documented as of this encounter Care Teams Operating Room Orderly Relationship Specialty Start Date End Date Gonzalo Smith MD [address] [place] [address] PCP - General Internal Medicine 01/01/16 11/03/18 None, None [address] [facility] [place] [address] PCP - General 11/04/18 02/05/22 Fili Andrade [facility] [place] [address] PCP - General 02/06/22 Chaparro Valles MD [address] [place] [address] Consulting Physician Gastroenterology 09/11/15 Camryn Velazco MD [address] [place] [address] Anesthesiology 12/19/20 Susan Goddard, RN Registered Nurse 12/23/20 Frances Christine RN Registered Nurse 12/23/20 Saundra Montanez, RN Registered Nurse 01/01/21 Alison Sherman NP Nurse Practitioner Nurse Practitioner 03/19/21 Abe Plaza MD Anesthesiology 09/04/21 documented as of this encounter
--- OUTSIDE RECORDS SUMMARY | 2025-07-09 09:52 | XMS_ITS | Clinical Summary ---
Author Organization [facility] Address [address] [place] [address] Care Team Providers Care Programming Internship Name Role Phone Chaparro Valles MD Unavailable [phone] Camryn Velazco MD Unavailable Unavailable Susan Goddard RN Unavailable Unavailable Frances Christine RN Unavailable UnavailSaundra Gutierrez RN Unavailable Unavailable Alison Sherman NP Unavailable [phone] Abe Plaza MD Unavailable [phone] Fili Andrade Primary Care Provider [phone] Allergies Active Allergy Reactions Criticality Noted Date Comments Antihistamines - Alkylamine 03/06/20 11 Makes patient tired Sulfa (Sulfonamide Antibiotics) Rash 03/18/2011 Medications acetaminophen (TYLENOL) 325 mg tablet Take 650 mg by mouth every 4 hours as needed. Active sucralfate (CARAFATE) 100 mg/mL suspension Take 10 mL by mouth 4 times daily. 1200 mL 3 7 Active esomeprazole (NEXIUM) 40 mg Capsule, Delayed Release(E.C.) TAKE ONE CAPSULE BY MOUTH ONCE DAILY IN THE MORNING BEFORE BREAKFAST 90 Cap 1 8 Active Additional Information Patient not taking.Reported on 08/16/2024 atorvastatin (LIPITOR) 10 mg Tablet Take 1 Tab by mouth daily. 90 Tab 1 8 Active GABAPENTIN PO Take by mouth. A ctive ciprofloxacin-h ydrocortisone (CIPRO HC OTIC) 0.2-1 % Drops, Suspension Place 4 Drops into ears 2 times daily. Active pantoprazole (PROTONIX) 40 mg Tablet, Delayed Release (E.C.) Take 40 mg by mouth daily. Active Active Problems Problem Noted Date Diagnosed Date Centrilobular emphysema 04/23/2017 Gastroesophageal reflux disease without esophagi tis 12/10/2016 Spinal stenosis of lumbar re gion with neurogenic claudication 05/05/2016 Spinal stenosis of lumbosacral region 09/27/2015 Bariatric surgery status 08/02/2015 GERD (gastroesophageal reflux disease) 1 Overview (07/08/2015): 07/0298-BIG-qyybvucoc normal, no hiatal hernia. Stricture of anastomosis. No ulcer. Elevated cholesterol Sinusitis, chronic Overview (01/08/2017): Replaced inactive diagnosis term via diagnosis import Asthma Spinal wtztqifq-MC-xamil Overview (05/29/2014): 04/29-epidural steroid injection 02/28-epidural steroid injection, L4-5 05/31-epidural steroid injection Iron deficiency anemia Overview (04/13/2011): secondary to gastric bypass Resolved Problems Problem Noted Date Diagnosed Date Resolved Date Bronchiolitis 02/19/2014 07/30/2016 Overview (02/19/2014): 02/28-seen by CT scan of the abdomen. Gastric mass 06/27/2012 07/30/2016 Overview (06/25/2014): 06/2904-KJT-kvxlbei mass, biopsy benign. 07/29-upper GI with small bowel follow-through revealed mucosal effacement involving the distal portion of the gastric pouch suggesting infiltrating or inflammatory process with narrowing of the gastric pouch, small bowel is normal. 08/29-tight stricture of the GJ anastomosis, probably a marginal ulcer. 07/01-EGD-mild pouch dilatation; stricture of anastomosis noted. Dilated gently. Colon wall thickening 06/27/20122015 Overview (07/22/2012): 06/29-CT scan reveals small segment of colon thickening. 06/29-colonoscopy is normal. Depression with anxiety 07/18 DM (diabetes mellitus) 05/17 Overview (03/06/2011): type ll Sleep apnea 08/02/2015 Obesity 01/11/2015 Overview (02/19/2014): 2004-gastric bypass surgery. 02/28-CT scan reveals tiny hiatal hernia, otherwise normal. Bronchiolitis seen in the lower lung castro Encounters Date Type Department Care Team Description 05/25/2025 11:01 AM EDT - 05/25/2025 11:59 PM EDT Hospital Encounter [facility] [address] [place] [address] Pain Discharge Disposition: Home or Self Care 05/25/2025 10:55 AM EDT - 05/25/2025 11:00 AM EDT Hospital Encounter [facility] [place] [facility] - Dr. Petty [address] [place] [address] Abe Plaza MD Lumbar radiculopathy (Primary Dx); Spinal stenosis of lumbar region with neurogenic claudication Discharge Disposition: Home or Self Care 04/26/2025 Telephone [facility] [place] [facility] - Dr. Petty [address] [place] [address] Frances Christine RN 04/23/2025 Telephone [facility] Scheduling [address] [place] [address] Abe Plaza MD Scheduling from Last 3 Months Immunizations Immunization Administration Dates Next Due Influenza 07/25/2014 Influenza (intradermal) 09/06/2017,07/30/2016, Influenza (whole) 09/21/2011 Tdap 09/21/2011 Family History Medical History Relation Name Comments Hypertension Father Other Mother renal failure Relation Name Status Comments Father Mother Social History Tobacco Use Types Packs/Day Years Used Date Smoking Tobacco: Former Cigarettes Smokeless Tobacco: Never Tobacco Cessation:Counseling Given: Not Answered Comments:Quit approx. age 34 Alcohol Use Standard Drinks/Week Comments No 0 (1 standard drink = 0.6 oz pur e alcohol) Sex and Gender Information Value Date Recorded Sex Assigned at Not on file Legal Sex Male 2:47 PM EST Gender Identity Not on file Sexual Orientation Not on file Last Filed Vital Signs Vital Sign Reading [...] Mass Index 23.68 05/25/2025 10:59 AM EDT Plan of Treatment Health Maintenance Due Date Last Done Comments Cologuard 1960 FIT 1960 RETIRED: Pneumovax Vaccine (Once) 1978 Pneumococcal Vaccine: 50+ Ye ars (1 of 2 - PCV) 1979 Zoster-RZV(Shingrix) (1 of 2) 2010 Lipid Monitoring 09/06/2018 09/06/2017, , 02/05/2014 PSA Prostate Cancer Screenin g (Yearly) 09/06/2018 09/06/2017, 07/30/2016, 08/02/2015, Additional history exists RSV Vaccines (1 - Risk 60-74 years 1-dose series) 2020 Colonoscopy 09/09/2020 09/09/2015, 06/19, 07/07/2012 Colorectal Cancer Screening 09/09/2020 Depression Screening 10/18/2024 09/06/2017, 07/30/2016, 10/01/2015 COVID-19 Vaccine (3 - 2024-2 6 season) 2025 10/15/2021, 02/11/2021 Influenza Vaccination (#1) 06/18/202509/06, 07/30/2016, 08/02/2015, Additional history exists Tetanus Vaccination (Every 1 0 Years) 02/11/2034 02/12/2024, 09/21/2011 Hepatitis C Virus (HCV) Screening Completed 014 Influenza Vaccination (Yearly) Discontinued 1 11/06/2016, 07/30/2016, 08/02/2015, Additional history exists Lipid Screening Discontinued 09/06/2017, 07/18, 02/05/2014, Additional history exists Procedures Procedure Name Priority Date/Time Associated Diagnosis Comments DIAG-RAD SVCS AMBULATORY PAIN Routine 05/25/2025 11:32 AM EDT Pain LIPID PROFILE Routine 09/06/2017 11:47 AM EST Encounter for Medicare annual wellness exam PSA (PROSTATE SPECIFIC AG) Routine 09/06/2017 11:47 AM EST Encounter for Medicare annual wellness exam EXTERNAL COLONOSCOPY - SEE COMMENT Routine 09/09/2015 HEPATITIS C AB WITH REFLEX TO HCV,RNA,QUANT PCR Routine 05/17/2014 9:19 AM EDT Hypertrophy of prostate without urinary obstruction and other lower urinary tract symptoms (LUTS) LBP (low back pain) from Last 3 Months or Most Recently Relevant to Health Maintenance Results * DIAG-RAD SVCS AMBULATORY PAIN (05/25/2025 [...] time = 0 minutes and 28 seconds. Abe Plaza MD IMG FLUOROSCOPY ORDERABLES Final Result * PSA (PROSTATE SPECIFIC AG) (09/06/2017 11:47 AM EST) Pathologist [facility] PSA 1.0 0.0 - 4.0 ng/mL [facility] Comment: Total PSA values obtained from different assay methods cannot be used interchangeably. PSA levels, regardless of value, should not be used as absolute evidence of the presence or absence of disease. Serum 09/06/2017 11:4 7 AM EST 09/06/2017 5:34 PM EST Domitila Giles TUBE REPAIRER CHEMISTRY ORDERABLES Final Result Performing Organization Address [facility]/ZIP Co de Phone Number [facility] [address] * (ABNORMAL) LIPID PROFILE (09/06/2017 11:47 AM EST) [facility] Chol/HDL Ratio 3.0 0 - 5 [facility] Cholesterol 190 125 - 199 mg/dL [facility] Comment: TOTAL CHOLESTEROL INTERPRETATION: Less than 200 mg/dL Desireable 200-239 mg/dL Borderline Greater or Equal to 240 mg/dL High LDL Calculated 112(H) 0 - 100 mg/dL [facility] Comment: LDL CHOLESTEROL INTERPRETATION: Less than 100 mg/dL Optimal 100-129 mg/dL Near optimal/above optimal 130-159 mg/dL Borderline High 160-189 mg/dL High Greater or Equal to 190 mg/dL Very High HDL 63 40 - 180 mg/dL [facility] Comment: HDL CHOLESTEROL INTERPRETATION: Less than 40 mg/dL Low Greater than 60 mg/dL Desirable Triglycerides 76 0 - 150 mg/dL [facility] Comment: TOTAL TRIGLYCERIDE INTERPRETATION: Less than 150 mg/dL Normal 150-199 mg/dL Borderline HIgh 200-499 mg/dL High Greater or Equal to 500 mg/dL Very High Plasma 09/06/2017 11:4 7 AM EST 09/06/2017 5:34 PM EST Narrative [facility] - 09/06/2017 6:20 PM EST Has the patient fasted?->Yes Domitila Giles TUBE REPAIRER CHEMISTRY ORDERABLES Final Result Performing Organization Address City/[facility]/ZIP Co de Phone Number [facility] [address] * EXTERNAL COLONOSCOPY - SEE COMMENT (09/09/2015) us Historical Provider [place] IMAG[facility] Final Result Performing Organization Address City/[facility]/ZIP Co de Phone Number [facility] [address] [place] [address] * HEPATITIS C AB (05/17/2014 9:19 AM EDT) HCV Qual Interp Nonreactive Nonreactive [facility] Comment:IgG and IgM anti-HCV not detected. Signal/Cutoff 0.12 0.00 - 1.00 S/CO [facility] Serum 05/17/2014 9:19 AM EDT 05/17/2014 1:53 PM EDT Anthony Brandon MD HEMATOLOGY ORDERABLES Final Result Performing Organization Address [facility] de Phone Number [facility] [address] from Last 3 Months or Most Recently Relevant to Health Maintenance Insurance MEDICARE MEDICARE MEDICARE MEDICARE Care Teams Programming Internship Relationship Specialty Start Date End Date AndradeFili [address] [place] [address] PCP - General 02/06/22 Chaparro Valles MD [address] [place] [address] Consulting Physician Gastroenterology 09/11/15 Camryn Velazco MD [address] [place] [address] Anesthesiology 12/19/20 Susan Goddard, RN Registered Nurse 12/23/20 Frances Christine RN Registered Nurse 12/23/20 Saundra Montanez, RN Registered Nurse 01/01/21 Alison Sherman NP Nurse Practitioner Nurse Practitioner 03/19/21 Abe Plaza MD Anesthesiology 09/04/21
--- OUTSIDE RECORDS SUMMARY | 2025-07-09 09:52 | XMS_ITS | Encounter Summary ---
Author Organization [facility] Address [address] [place] [address] Care Team Providers Care Turkey Picker Name Role Phone Chaparro Valles MD Unavailable [phone] Gonzalo Smith MD Primary Care Provider [phone] None, None Primary Care Provider UnavailCamryn Daugherty MD Unavailable Unavailable Susan Goddard RN Unavailable Unavailable Frances Christine RN Unavailable UnavailSaundra Gutierrez RN Unavailable Unavailable Alison Sherman NP Unavailable [phone] Abe Plaza MD Unavailable [phone] Fili Andrade Primary Care Provider [phone] Encounter Details Date Type Department Care Team (Late st Contact Info) Description 03/17/2011 Abstract [facility] Physicians - Primary Care, [address] [address] Ambulatory, Fishing Captain Social History Tobacco Use Types Packs/Day Years Used Date Smoking Tobacco: Never Alcohol Use Standard Drinks/Week Comments No 0 (1 standard drink = 0.6 oz pur e alcohol) Sex and Gender Information Value Date Recorded Sex Assigned at Not on file Legal Sex Male 2:47 PM EST Gender Identity Not on file Sexual Orientation Not on file documented as of this encounter Plan of Treatment Not on file documented as of this encounter Visit Diagnoses Not on filedocumented in this encounter Care Teams Turkey Picker Relationship Specialty Start Date End Date Gonzalo Smith MD [address] [place] [address] PCP - General Internal Medicine 01/01/16 11/03/18 None, None [address] [facility] [place] [address] PCP - General 11/04/18 02/05/22 Fili Andrade [address] [place] [address] PCP - General 02/06/22 Chaparro Valles MD [address] [place], [place] [id number] Consulting Physician Gastroenterology 09/11/15 Camryn Velazco MD [address] [facility] [place] [address] Anesthesiology 12/19/20 Susan Goddard, RN Registered Nurse 12/23/20 Frances Christine, RN Registered Nurse 12/23/20 Saundra Montanez, RN Registered Nurse 01/01/21 Alison Sherman, LOIS Nurse Practitioner Nurse Practitioner 03/19/21 Abe Plaza MD Anesthesiology 09/04/21 documented as of this encounter
--- OUTSIDE RECORDS SUMMARY | 2025-07-09 09:52 | XMS_ITS | Encounter Summary ---
Author Organization [facility] Address [address] [place] [address] Care Team Providers Care Air Export Coordinator Name Role Phone Chaparro Valles MD Unavailable [phone] None, None Primary Care Provider UnavailCamryn Daugherty MD Unavailable Unavailable Susan Goddard RN Unavailable Unavailable Frances Christine RN Unavailable UnavailSaundra Gutierrez RN Unavailable Unavailable Alison Sherman NP Unavailable [phone] MD Unavailable [phone] Fili Andrade Primary Care Provider Reason for Referral * Consult, Test & Treat (Routine) - Not Needed Specialty Diagnoses / Procedures Referred By Contact Referred To Contact Anesthesiology / Pain Management Diagnoses Dorsalgia NonstaffHarsha MD [address] [facility] Phone: tel: [facility] [address] [place] [address] Phone: tel: fax: Referral ID Status Reason Start Date Expiration Date V isits Requested Visits Authorized [id number] Not Needed 04/07/2019 99 99 Encounter Details Date Type Department Care Team (Late st Contact Info) Description 04/07/2019 Orders Only Pain Management [address] [place] [address] Alison Sherman, AUTO CLAIM REPRESENTATIVE [address] [facility] [address] [place] [phone] Dorsalgia (Primary Dx) Social History Tobacco Use Types [...] of this encounter Plan of Treatment Scheduled Referrals Name Type Priority Associated Diagnoses Order Schedule PMA INTERVENTIONAL PAIN MANAGEMENT REFERRAL Outpatient Referral Routine Dorsalgia Ordered: 04/07/2019 documented as of this encounter Visit Diagnoses Diagnosis Dorsalgia- Primary Pain in thoracic spine documented in this encounter Additional Health Concerns Assessment Noted Time PHQ-9 Depression Total Score: 1 09/06/20 17 10:36 AM EST documented as of this encounter Care Teams Air Export Coordinator Relationship Specialty Start Date End Date None, None [address] [place] [address] PCP - General 11/04/18 02/05/22 Fili Andrade [address] [place] [phone] PCP - General 02/06/22 Chaparro Valles MD [address] [place] [phone] Consulting Physician Gastroenterology 09/11/15 Camryn Velazco MD [address] [place] [address] Anesthesiology 12/19/20 Susan Goddard, LASHANDA Registered Nurse 12/23/20 Frances Christine RN Registered Nurse 12/23/20 Saundra Montanez RN Registered Nurse 01/01/21 Alison Sherman, AUTO CLAIM REPRESENTATIVE Nurse Practitioner Nurse Practitioner 03/19/21 Abe Plaza MD Anesthesiology 09/04/21 documented as of this encounter
--- OUTSIDE RECORDS SUMMARY | 2025-07-09 09:52 | XMS_ITS | Encounter Summary ---
Author Organization [facility] Address [address] [place] [address] Care Team Providers Care Chocolate Finisher Operator Name Role Phone Chaparro Valles MD Unavailable [phone] None, None Primary Care Provider UnavailCamryn Daugherty MD Unavailable Unavailable Susan Goddard RN Unavailable Unavailable Frances Christine RN Unavailable UnavailSaundra Gutierrez RN Unavailable Unavailable Alison Sherman NP Unavailable [phone] [address] MD Unavailable [phone] Fili Andrade Primary Care Provider [phone] Reason for Referral * Consult, Test & Treat (Routine) - Not Needed Specialty Diagnoses / Procedures Referred By Contact Referred To Contact Anesthesiology / Pain Management Diagnoses Dorsalgia NonstaffHarsha MD [address] [facility] Phone: tel: [facility] [address] [place] [address] Phone: tel: fax: Referral ID Status Reason Start Date Expiration Date V isits Requested Visits Authorized [id number] Not Needed 06/20/2019 99 99 Encounter Details Date Type Department Care Team (Late st Contact Info) Description 06/20/2019 Orders Only Pain Management [address] [place] [address] Alison Sherman, DESIGN ANALYST [address] [facility] [address] [place] [phone] Dorsalgia (Primary Dx) Social History Tobacco Use [...] MANAGEMENT REFERRAL Outpatient Referral Routine Dorsalgia Ordered: 06/20/2019 documented as of this encounter Visit Diagnoses Diagnosis Dorsalgia- Primary Pain in thoracic spine documented in this encounter Additional Health Concerns Assessment Noted Time PHQ-9 Depression Total Score: 1 09/06/20 17 10:36 AM EST documented as of this encounter Care Teams Chocolate Finisher Operator Relationship Specialty Start Date End Date None, None [address] [facility] [place] [address] PCP - General 11/04/18 02/05/22 Fili Andrade [address] [place] [phone] PCP - General 02/06/22 Chaparro Valles MD [address] [place] [phone] Consulting Physician Gastroenterology 09/11/15 Camryn Velazco MD [address] [facility] [place] [address] Anesthesiology 12/19/20 Susan Goddard, LASHANDA Registered Nurse 12/23/20 Frances Christine RN Registered Nurse 12/23/20 Saundra Montanez RN Registered Nurse 01/01/21 Alison Sherman, DESIGN ANALYST Nurse Practitioner Nurse Practitioner 03/19/21 Abe Plaza MD Anesthesiology 09/04/21 documented as of this encounter
--- OUTSIDE RECORDS SUMMARY | 2025-07-09 09:52 | XMS_ITS | Clinical Summary ---
Author Organization [facility] [place] [address] Phone Care Team Providers Care Professional Poker Player Name Role Phone Anthony Brandon MD Primary Care Provider Unavail able Allergies Active Allergy Reactions Criticality Noted Date Comments Sulfa (Sulfonamide Antibiotics) Hives 05/20 Medications No known medications Surgical History Surgery Date Site/Laterality Comments ALTON-EN-Y GASTRIC BYPASS BACK SURGERY neck fusion HAND SURGERY jake carpel tunnel TONSILLECTOMY ELBOW SURGERY CHOLECYSTECTOMY COLONOSCOPY 09/09/2015 N/A COLONOSCOPY with snare polypectomy; Surgeon: Chaparro Valles MD; Location: [facility]; Service: Endoscopy Medical History Medical History Date Comments Arthritis hands Diabetes mellitus (HCC) diet con trolled Social History Tobacco Use Types Packs/Day Years Used Date Smoking Tobacco: Never Alcohol Use Standard Drinks/Week Comments No 0 (1 standard drink = 0.6 oz pur e alcohol) Sex and Gender Information Value Date Recorded Sex Assigned at Not on file Legal Sex Male 8:11 PM EDT Gender Identity Not on file Sexual Orientation Not on file Obstetrics History Last Filed Vital Signs Vital Sign Reading Time Taken Comments Blood Pressure 117/68 09/09/2015 11:29 AM EST Pulse 60 09/09/2015 11:29 AM EST Temperature 36.7 C (98 F) 09/09/2015 10:30 AM EST Respiratory Rate 16 09/09/2015 11:29 AM EST Oxygen Saturation 100% 09/09/2015 11:29 AM EST Inhaled Oxygen Concentration - - Weight 77.1 kg (170 lb) 09/09/2015 8:44 AM EST Height 177.8 cm (5' 10 ) 09/09/2015 8:44 AM EST Body Mass Index 24.39 09/09/2015 8:44 AM EST Plan of Treatment Health Maintenance Due Date Last Done Comments Annual Wellness Exam 1963 Hepatitis C Screening 1978 DTaP/TDaP/Td (1 - Tdap) 1979 Cologuard 2005 FIT 2005 Sigmoidoscopy 2005 Virtual Colonography 2005 Pneumococcal Vaccine 50+ (1 of 1 - PCV) 2010 Zoster (1 of 2) 2010 COVID-19 Vaccine (1 - 2023-2 5 season) 2025 Influenza Vaccine (#1) 2025 Colon Cancer Screening 09/09/2025 Colonoscopy 09/09/2025 09/09/2015 Hepatitis B Vaccine Aged Out No longe r eligible based on patient's age to complete this topic Meningococcal B Vaccine Aged Out No l onger eligible based on patient's age to complete this topic Procedures Procedure Name Priority Date/Time Associated Diagnosis Comments [facility]ED COLONOSCOPY Routine 09/09/2015 9:30 AM EST from Last 3 Months or Most Recently Relevant to Health Maintenance Results * [facility]ED COLONOSCOPY (09/09/2015 9:30 AM EST) 09/09/2015 9:30 AM EST Impressions [facility] - 09/09/2015 10:29 AM EST Polyp (6 mm) in the ascending colon. (Polypectomy). Grade 2 internal hemorrhoids. Plan: Await pathology results High Fiber Diet Begin a daily fiber supplement as directed Continue current GI medications Resume all usual medications Educational Handout: Diverticulosis Educational Handout: Hemorrhoids Colonoscopy in 5 years This section is an excerpt of the full report. us Chaparro Valles MD GI PROCEDURE ORDERABLES Final Result [facility] [address] [place] [address] from Last 3 Months or Most Recently Relevant to Health Maintenance Insurance [employer] P[place] [address] Care Teams Professional Poker Player Relationship Specialty Start Date End Date Anthony Brandon MD PCP - General Internal Medicine 06/14/12
--- NOTE | 2025-07-09 12:08 | XR_ITS ---
FINAL REPORT CLINICAL HISTORY: cough, [place] COMPARISON: 06/29/2022 FINDINGS: 2 views of the chest were obtained . The heart is normal in size. The mediastinum is within normal limits. The lungs are clear. There is no pneumothorax. Osseous structures are unremarkable. IMPRESSION: No acute cardiopulmonary process. Reviewed, Interpreted and Dictated by Tracy Sweeney MD Transcribed by Marychuy Malone Authenticated and [facility]
== END 2025-07-09 23:59 | disposition home or self-care (01) ==
PROVIDERS: PCP Nurse Practitioner Family; Visit Provider Physician Assistant
DX: M19.031 Primary osteoarthritis, right wrist (principal); R05.1 Acute cough; R06.00 Dyspnea, unspecified
CPT/HCPCS: 71046; 73110